=== PATIENT | male | born 1945 | race Caucasian/White ===

== ENCOUNTER → 2019-01-25 11:06 | Outpatient (CLI) | payer MEDICARE, BC ==
[2010-10-01 08:56] VITALS: BMI 27.4
== END | disposition home or self-care (01) ==
LOC: D.MRI 11:06
PROVIDERS: ATTEND Family Medicine
DX: R51 Headache (principal)

== ENCOUNTER 2019-09-07 11:03 | Inpatient (IN) | payer MEDICARE, BC ==
[~2019-09-07] VITALS: Ht 172.7 cm; Wt 78.5 kg
[2019-09-07] MEDS ORDERED: LISINOPRIL10 MG PO (11:10)
[2019-09-07 11:37] LABS: BASOPHILS 0.1 % (0-2); EOSINOPHILS 0.6 % (0-7); HEMATOCRIT 47.3 % (42.0-54.0); HEMOGLOBIN 16.2 g/dL (13.5-17.5); IMMATURE GRANULOCYTES 1.1 % (0-5); MCH 30.8 pg (26.0-34.0); MCHC 34.2 g/dL (31.0-37.0); MCV 89.9 fL (80.0-100.0); MEAN PLATELET VOLUME 9.3 fL (7.4-10.4); MONOCYTES 8.1 % (2-11); NEUTROPHILS 73.1 % (40-80); PLATELET COUNT 216 10x3/uL (130-400); RBC 5.26 10x6/uL (4.20-6.10); RDW 12.4 % (11.5-14.5); WBC 11.7 10x3/uL (4.8-10.8)
[2019-09-07 11:45] LABS: CALCIUM 9.4 mg/dL (8.5-10.1); CREATININE - SERUM 1.2 mg/dL (0.6-1.3)
--- NOTE | 2019-09-07 11:45 | NUR ---
TECH AT BS FOR RLE US
[2019-09-07 11:48] LABS: BILIRUBIN - TOTAL 0.77 mg/dL (0.2-1.3); PROTEIN - SERUM 8.3 g/dL (6.4-8.2)
[2019-09-07 11:52] LABS: APTT 28.3 SECONDS (22.8-39.4); INR 1.06 (0.85-1.17); PROTIME 13.3 SECONDS (11.6-15.0)
--- NOTE | 2019-09-07 12:24 | NUR ---
ATTEMPTED TO CALL REPORT RN UNAVAILABLE
--- NOTE | 2019-09-07 12:26 | MORECARE ---
CASE MANAGEMENT DISCHARGE SUMMARY PATIENT: KAN MOSELEY UNIT: [id number] ADM DATE: 09/07/19 AGE: 74 : 43 SEX: M ROOM/BED: D.211 AUTHOR: GARRICK CARTAGENA PHYSICIAN: REFERRING PHYSICIAN: NII CÁRDENAS MD DATE OF SERVICE: 09/07/19 Discharge Plan Patient Name: KAN MOSELEY [facility] [facility] 1945 Planned Disposition: Anticipated Discharge Date: 09/10/19 Discharge Date: Expected LOS: 3 Initial Reviewer: [email or web address] Initial Review Date: 09/07/2019 Generated: 09/07/19 1:26 pm DCPIA - Discharge Planning Initial Assessment Updated by [email or web address]: Donya Willoughby on 09/07/19 12:25 pm * Is the patient Alert and Oriented? Yes * How many steps to enter\exit or inside your home? * PCP Dr. Santos * Pharmacy [facility] in [place] * Preadmission Environment Home with Family * ADLs Independent * Equipment Rolling Walker Wheelchair * Other Equipment Does not use equipment * List name and contact numbers for known caregivers / representatives who currently or will assist patient after discharge: Beba Moseley - - [phone] * Verbal permission to speak to the caregivers and representatives has been obtained from the patient. Yes * Community resources currently utilized None * Additional services required to return to the preadmission environment? No * Can the patient safely return to the preadmission environment? Yes * Has this patient been hospitalized within the prior 30 days at any hospital? No Patient Name: KAN MOSELEY Page [id number] at 1226 All edits/amendments must be made on the electronic document DICTATION DATE: 09/07/191225 CONTROL OPERATOR FLOW COAT: WAYLON 09/07/196 RPT#: [id number] DC DATE: STATUS: ADM IN [facility] [address] [place] [address] END OF REPORT
--- NOTE | 2019-09-07 12:32 | NUR ---
REPORT TO RAFAEL EDOUARD
--- NOTE | 2019-09-07 12:33 | NUR ---
RECIEVED REPORT FROM ATIF ON PT.
[2019-09-07 12:34] VITALS: BP 127/85
--- NOTE | 2019-09-07 12:35 | MORECARE ---
CASE MANAGEMENT DISCHARGE SUMMARY PATIENT: KAN MOSELEY UNIT: [id number] ADM DATE: 09/07/19 AGE: 74 : 44 SEX: M ROOM/BED: D.2111 AUTHOR: OSIEL,DOC PHYSICIAN: REFERRING PHYSICIAN: NII CÁRDENAS MD DATE OF SERVICE: 09/07/19 Discharge Plan Patient Name: KAN MOSELEY Facility: [facility]:[place] : 1945 Planned Disposition: Anticipated Discharge Date: 09/10/19 Discharge Date: Expected LOS: 3 Initial Reviewer: [email or web address] Initial Review Date: 09/07/2019 Generated: 09/07/19 1:35 pm DCP- Discharge Planning Updated by [email or web address]: Donya Willoughby on 09/07/19 11:[address] DC PLAN: Return home with independently. ANTICIPATED DC NEEDS: Denied dc needs. CM met with patient to complete initial dc planning assessment. CM educated patient on the CM role and verbal consent given by patient to complete assessment. CM verified patient's address, phone number, and emergency contact phone numbers. Patient lives at home with his and reports he is independent in his care at home. At discharge patient plans to return home independently and feels this is a safe discharge. CM discussed availability of home health, rehab services, and medical equipment. Patient denied known discharge needs at this time. Transportation provider at discharge will be his . CM will continue to follow and will assist as needed with dc plans/needs. Donya Willoughby RN, [facility] DCPIA - Discharge Planning Initial Assessment Updated by [email or web address]: Donya Willoughby on 09/07/19 12:25 pm * Is the patient Alert and Oriented? Yes * How many steps to enter\exit or inside your home? * PCP Dr. Santos * Pharmacy [facility] in [place] * Preadmission Environment Home with Family * ADLs Independent * Equipment Rolling Walker Wheelchair * Other Equipment Does not use equipment * List name and contact numbers for known caregivers / representatives who currently or will assist patient after discharge: Beba Moseley - - [phone] * Verbal permission to speak to the caregivers and representatives has been obtained from the patient. Yes * Community resources currently utilized None * Additional services required to return to the preadmission environment? No * Can the patient safely return to the preadmission environment? Yes * Has this patient been hospitalized within the prior 30 days at any hospital? No Last DP export: 09/07/19 11:26 Patient Name: KAN MOSELEY Page [phone] at 1235 All edits/amendments must be made on the electronic document DICTATION DATE: 09/07/19 1235 FILM PROJECTOR OPERATOR: WAYLON 09/07/19 1235 RPT#: [id number] DC DATE: STATUS: ADM IN [facility] [address] [place] [address] END OF REPORT
--- NOTE | 2019-09-07 12:40 | NUR ---
TRANSPORTED TO ROOM #2111, CONDITION STABLE
--- NOTE | 2019-09-07 12:51 | NUR ---
PT ARRIVED TO ROOM. RR EVEN AND UNLBAORED ON RA. PT HAS A L FA PIV INFUSING NS @125. AT BEDSIDE. BED LOCKED AND IN LOWEST POSITION, CALL LIGHT WITHIN REACH WILL CTM.
[2019-09-07 16:14] VITALS: BP 127/85; BMI 26.6
[2019-09-07 17:19] VITALS: BP 148/87
[2019-09-07 18:21] LABS: APPEARANCE CLEAR (CLEAR); BILIRUBIN NEGATIVE (NEGATIVE); COLOR YELLOW (YELLOW); GLUCOSE 1000 mg/dL (NEGATIVE); KETONE NEGATIVE (NEGATIVE); NITRITE NEGATIVE (NEGATIVE); PROTEIN NEGATIVE (NEGATIVE); SPECIFIC GRAVITY 1.015 (1.005-1.020); UROBILINOGEN NORMAL (NORMAL)
--- NOTE | 2019-09-07 19:31 | NUR ---
RECEVIED UP IN BED WITH EYES O[PEN AND TV ON. ALERT AND ORIETNED X4. UP AD RONI TO B/R.RIGHT LOWER EXTREMITY WARM, RED AND EDEMATOUS. IV TO RIGHT WRIST WITH NS AT 75CC/H. DENIES ANY NEEDS AT THIS TIME.
[2019-09-07 20:30] VITALS: BP 102/61
[2019-09-08 00:30] VITALS: BP 112/66
[2019-09-08 05:04] LABS: BASOPHILS 0.3 % (0-2); EOSINOPHILS 4.1 % (0-7); HEMATOCRIT 40.7 % (42.0-54.0); HEMOGLOBIN 13.5 g/dL (13.5-17.5); IMMATURE GRANULOCYTES 1.7 % (0-5); LYMPHOCYTES 29.5 % (15-50); MCH 30.1 pg (26.0-34.0); MCHC 33.2 g/dL (31.0-37.0); MCV 90.6 fL (80.0-100.0); MEAN PLATELET VOLUME 9.1 fL (7.4-10.4); MONOCYTES 8.9 % (2-11); NEUTROPHILS 55.5 % (40-80); PLATELET COUNT 200 10x3/uL (130-400); RBC 4.49 10x6/uL (4.20-6.10); RDW 12.4 % (11.5-14.5)
[2019-09-08 05:11] LABS: WBC 7.8 10x3/uL (4.8-10.8)
[2019-09-08 05:20] LABS: ALKALINE PHOSPHATASE 98 U/L (46-116); ALT (SGPT) 13 U/L (10-68); BILIRUBIN - TOTAL 0.58 mg/dL (0.2-1.3); CALCIUM 8.2 mg/dL (8.5-10.1); CARBON DIOXIDE 25.8 mmol/L (21.0-32.0); CHLORIDE - SERUM 104 mmol/L (98-107); POTASSIUM - SERUM 4.3 mmol/L (3.5-5.1); PROTEIN - SERUM 6.7 g/dL (6.4-8.2); SODIUM 136 mmol/L (136-145); eGFR NON AFRICAN AMERICAN 77 mL/min (90-120)
[2019-09-08 05:22] LABS: CALC OSMOLALITY 280 mosm/kg (275-300); GLUCOSE 238 mg/dL (74-106); UREA NITROGEN 16 mg/dL (7-18)
[2019-09-08 06:42] VITALS: BP 123/75
[2019-09-08 08:06] VITALS: BP 132/78
--- NOTE | 2019-09-08 09:47 | NUR ---
LISINOPRIL GIVEN ORDRED, PT IN BED, A/O X4, RESP EVEN AND NONLABORED ON RA. LT FA IV INFUSING NS AT 75CC/HR. PT DENIES ANY NEEDS AT THIS TIME. CALL LIGHT IN REACH, NAD NOTED, WILL CONTINUE TO MONITOR.
[2019-09-08 11:33] VITALS: BP 146/74
[2019-09-08 15:31] VITALS: BP 147/82
--- NOTE | 2019-09-08 18:18 | NUR ---
PT RESTING COMFORTABLY IN BED, PROVIDED PT WITH CUP OF ICE WATER. PT DENIES ANY OTHER NEEDS AT THIS TIME. CALL LIGHT IN REACH, NAD NOTED.
--- NOTE | 2019-09-08 19:30 | NUR ---
REPORT RECIEVED AND ROUNDING COMPLETE. PATIENT LAYING IN BED EYES CLOSED AND BEATHING EVEN AND SHALLOW. PATIENT HAS A LEFT WRIST PIV THAT IS PATENT AND RUNNING FLUIDS. PIV IS SHOWING NO S/SX OF INFILTRATION AT THIS TIME. PATIENT IN LAYING IN LOW FOWLERS, PATIENT SHOWS NO S/SX OF DISTRESS AT THIS TIME. CALL LIGHT WITHIN REACH AND BED IN LOWEST LOCKED POSITION.
[2019-09-08 20:30] VITALS: BP 135/71
[2019-09-09 00:26] VITALS: BP 142/75
[2019-09-09 10:28] VITALS: BP 146/84
[2019-09-09 14:02] VITALS: BP 106/68
[2019-09-09 17:10] VITALS: BP 113/76
--- NOTE | 2019-09-09 19:22 | NUR ---
AWAKE ANS ALERT DENIES NEEDS AT THIS TIME BED IS LOW AND LOCKED AND CALL LIGHT IS IN REACH
[2019-09-09 20:29] VITALS: BP 117/61
[2019-09-10 00:30] VITALS: BP 132/73
--- NOTE | 2019-09-10 01:24 | NUR ---
I have reviewed this patient and I concur with the Shift Assessment completed by the Licensed Practical Nurse today this shift.
[2019-09-10 04:03] VITALS: BP 136/93
[2019-09-10 06:01] LABS: BASOPHILS 0.1 % (0-2); HEMATOCRIT 40.9 % (42.0-54.0); HEMOGLOBIN 13.7 g/dL (13.5-17.5); IMMATURE GRANULOCYTES 1.3 % (0-5); LYMPHOCYTES 32.4 % (15-50); MCHC 33.5 g/dL (31.0-37.0); MCV 89.5 fL (80.0-100.0); MEAN PLATELET VOLUME 9.3 fL (7.4-10.4); MONOCYTES 8.8 % (2-11); NEUTROPHILS 53.4 % (40-80); PLATELET COUNT 226 10x3/uL (130-400); RBC 4.57 10x6/uL (4.20-6.10); RDW 12.4 % (11.5-14.5); WBC 7.2 10x3/uL (4.8-10.8)
[2019-09-10 06:34] LABS: CALCIUM 8.4 mg/dL (8.5-10.1); CARBON DIOXIDE 24.2 mmol/L (21.0-32.0); CHLORIDE - SERUM 107 mmol/L (98-107); CREATININE - SERUM 0.9 mg/dL (0.6-1.3); POTASSIUM - SERUM 4.3 mmol/L (3.5-5.1); SODIUM 141 mmol/L (136-145); eGFR NON AFRICAN AMERICAN 87 mL/min (90-120)
[2019-09-10 06:38] LABS: CALC OSMOLALITY 283 mosm/kg (275-300); GLUCOSE 174 mg/dL (74-106); UREA NITROGEN 11 mg/dL (7-18)
--- NOTE | 2019-09-10 07:56 | NUR ---
PATIENT IS ALERT AND AWAKE. DENIES ANY NEEDS AT THIS TIME.
--- NOTE | 2019-09-10 07:57 | NUR ---
PATIENT IS SITTING UP IN BED. HE HAS BEEN NPO SINCE MIDNIGHT. HE WANTS TO EAT AND DRINK. HIS WAS CALLING TO FIND OUT WHAT TIME HE IS HAVING HIS PROCEDURE, HOWEVER THERE ARE NO ORDERS YET. PATIENT HAS NOT REPORTED ANY PAIN. DENIES ANY NEEDS AT THIS TIME.
[2019-09-10 08:40] VITALS: BP 126/80
--- OUTSIDE RECORDS SUMMARY | 2019-09-10 10:53 | XMS Report ---
Demographics + + + | Address | [address] | | | [place] [address] | + + + | Home Phone | [phone] | + + + | Preferred Language | Unknown | + + + | Marital Status | | + + + | Yarsani Affiliation | Shinto: Mormon | + + + | Race | White | + + + | Ethnic Group | Not or | + + + Author + + + | Author | [facility] | + + + | Organization | [facility] | + + + | Address | Unknown | + + + | Phone | Unavailable | + + + Support + + + + + | Name | Relationship | Address | Phone | + + + + + | Jeff COATS Of [facility] | [address] | [phone] | | [place] | | [place] | | | | | [address] | | + + + + + Care Team Providers + + + + | Care Makeup Artistry Instructor Name | Role | Phone | + + + + Unavailable | Unavailable | + + + + Unavailable | Unavailable | + + + + Unavailable | Unavailable | + + + + Unavailable | Unavailable | + + + + Unavailable | Unavailable | + + + + Unavailable | Unavailable | + + + + Unavailable | Unavailable | + + + + Unavailable | Unavailable | + + + + Unavailable | Unavailable | + + + + Unavailable | Unavailable | + + + + Unavailable | Unavailable | + + + + Unavailable | Unavailable | + + + + Unavailable | Unavailable | + + + + Unavailable | Unavailable | + + + + Unavailable | Unavailable | + + + + Unavailable | Unavailable | + + + + Unavailable | Unavailable | + + + + Unavailable | Unavailable | + + + + Unavailable | Unavailable | + + + + Unavailable | Unavailable | + + + + Unavailable | Unavailable | + + + + Unavailable | Unavailable | + + + + Unavailable | Unavailable | + + + + Unavailable | Unavailable | + + + + Unavailable | Unavailable | + + + + Unavailable | Unavailable | + + + + Unavailable | Unavailable | + + + + Unavailable | Unavailable | + + + + Unavailable | Unavailable | + + + + Unavailable | Unavailable | + + + + Unavailable | Unavailable | + + + + Unavailable | Unavailable | + + + + Unavailable | Unavailable | + + + + Unavailable | Unavailable | + + + + Unavailable | Unavailable | + + + + Unavailable | Unavailable | + + + + Unavailable | Unavailable | + + + + Unavailable | Unavailable | + + + + Unavailable | Unavailable | + + + + Unavailable | Unavailable | + + + + Unavailable | Unavailable | + + + + Unavailable | Unavailable | + + + + Unavailable | Unavailable | + + + + Unavailable | Unavailable | + + + + Unavailable | Unavailable | + + + + Unavailable | Unavailable | + + + + Unavailable | Unavailable | + + + + Unavailable | Unavailable | + + + + Unavailable | Unavailable | + + + + Unavailable | Unavailable | + + + + Unavailable | Unavailable | + + + + Unavailable | Unavailable | + + + + Unavailable | Unavailable | + + + + Unavailable | Unavailable | + + + + Unavailable | Unavailable | + + + + Unavailable | Unavailable | + + + + Unavailable | Unavailable | + + + + Unavailable | Unavailable | + + + + Unavailable | Unavailable | + + + + Unavailable | Unavailable | + + + + Unavailable | Unavailable | + + + + Unavailable | Unavailable | + + + + Unavailable | Unavailable | + + + + Unavailable | Unavailable | + + + + Unavailable | Unavailable | + + + + Unavailable | Unavailable | + + + + Unavailable | Unavailable | + + + + Unavailable | Unavailable | + + + + Unavailable | Unavailable | + + + + Unavailable | Unavailable | + + + + Unavailable | Unavailable | + + + + Unavailable | Unavailable | + + + + Unavailable | Unavailable | + + + + Unavailable | Unavailable | + + + + Unavailable | Unavailable | + + + + Unavailable | Unavailable | + + + + Unavailable | Unavailable | + + + + Unavailable | Unavailable | + + + + Unavailable | Unavailable | + + + + Unavailable | Unavailable | + + + + Unavailable | Unavailable | + + + + Unavailable | Unavailable | + + + + Unavailable | Unavailable | + + + + Unavailable | Unavailable | + + + + Unavailable | Unavailable | + + + + Unavailable | Unavailable | + + + + Unavailable | Unavailable | + + + + Unavailable | Unavailable | + + + + Unavailable | Unavailable | + + + + Unavailable | Unavailable | + + + + Unavailable | Unavailable | + + + + Unavailable | Unavailable | + + + + Unavailable | Unavailable | + + + + Unavailable | Unavailable | + + + + Unavailable | Unavailable | + + + + Unavailable | Unavailable | + + + + Unavailable | Unavailable | + + + + Unavailable | Unavailable | + + + + Unavailable | Unavailable | + + + + Unavailable | Unavailable | + + + + Unavailable | Unavailable | + + + + Unavailable | Unavailable | + + + + Unavailable | Unavailable | + + + + Unavailable | Unavailable | + + + + | Danielle Hernandez | PP | Unavailable | + + + + Allergies and Adverse Reactions +---------+ + + +--------+ + | Type | Descripti | Substance | Reaction | Status | Data | | | on | | | | Source(s) | +---------+ + + +--------+ + | Drug | No Known | No Known | | | National | | allergy | Drug | Drug | | | [facility] | | | Allergy | Allergy | | | Medical | | | | | | | Center | | | | | | | ([facility] | | | | | | | Hospital | +---------+ + + +--------+ + Encounters + + + + + + + | Encounter | Providers | Location | Date | Indicatio | Data | | | | | | ns | Source(s) | + + + + + + + | OUTPATIEN | Admitter: | Dick | | | [facility] | | T | Danielle | Family | 9 | | r | | | Tom | Medicine | 10:42:00 | | Physician | | | | | AM COMMERCIAL CONSTRUCTION ESTIMATOR | | s Hot | | | | | | | [place] | | | | | | | Lexa | + + + + + + + | OUTPATIEN | Admitter: | [email or web address] | | | National | | T | NETO | paedic | 9 | | Park | | | IMER | Center of | 10:11:00 | | Medical | | | | Hot | AM COMMERCIAL CONSTRUCTION ESTIMATOR | | Center | | | | [place] | | | Clinics | + + + + + + + | OUTPATIEN | Admitter: | [email or web address] | | | National | | T | NETO | winifredic | 9 | | Park | | | POPPYDER | Center of | 10:10:00 | | Medical | | | | Hot | AM COMMERCIAL CONSTRUCTION ESTIMATOR | | Center | | | | [place] | | | Clinics | + + + + + + + | OUTPATIEN | Admitter: | [place] | | | [facility] | | T | Danielle | Family | 9 | | r | | | Tom | Medicine | 11:35:00 | | Physician | | | | | AM COMMERCIAL CONSTRUCTION ESTIMATOR | | s Hot | | | | | | | [place] | | | | | | | Silvia | + + + + + + + | OUTPATIEN | Admitter: | [facility] | | | [facility] | | T | Danielle | Family | 9 | | r | | | Tom | Medicine | 35: | | Physician | | | | | AM COMMERCIAL CONSTRUCTION ESTIMATOR | | s Hot | | | | | | | [place] | | | | | | | Lexa | + + + + + + + | OUTPATIEN | Admitter: | Dick | | | [facility] | | T | Danielle | Family | 9 | | r | | | Tom | Medicine | 34: | | Physician | | | | | AM COMMERCIAL CONSTRUCTION ESTIMATOR | | s Hot | | | | | | | [place] | | | | | | | Lexa | + + + + + + + | OUTPATIEN | Admitter: | [place] | | | [facility] | | T | Danielle | Family | 9 | | r | | | Tom | Medicine | 11:06:00 | | Physician | | | | | AM COMMERCIAL CONSTRUCTION ESTIMATOR | | s Hot | | | | | | | [place] | | | | | | | Silvia | + + + + + + + | Inpatient | Attender: | | | | National | | | NII | | 9 | | Park | | | DWORKINAt | | 11:03:00 | | Medical | | | tender: | | AM COMMERCIAL CONSTRUCTION ESTIMATOR | | Center | | | EVA | | | | ([facility]) | | | RACHAEL | | | | Hospital | | | MDAluisitte | | | | | | | r: NII | | | | | | | FAROOQORKLouis | | | | | | | nsultant: | | | | | | | Danielle | | | | | | | Tom | | | | | + + + + + + + | OUTPATIEN | Admitter: | Dick | | | [facility] | | T | Danielle | Family | 9 | | r | | | Tom | Medicine | :33: | | Physician | | | | | AM COMMERCIAL CONSTRUCTION ESTIMATOR | | s Hot | | | | | | | [place] | | | | | | | Silvia | + + + + + + + | Outpatien | Attender: | Dick | | | [facility] | | t | | Family | 9 | | r | | | [facility] | Medicine | 09:33:00 | | Physician | | | R | | AM COMMERCIAL CONSTRUCTION ESTIMATOR | | s Hot | | | WALK-INAd | | | | [place] | | | mitter: | | | | Sil[place] | | | Danielle | | | | | | | Tom | | | | | + + + + + + + + + | PatientName : KAN COATS (74yo, M) ID# [id number]. Date/Time : | | 09/07/2019 09:30AMDOB : 1945Service Dept. [facility] | | ClinicProvider : BRAXTON DANIELS CNPInsuranceMed Primary: [place] | | (MEDICARE)Insurance # : [id number] Secondary: [place] - | | FEPInsurance # : [id number]/Group # : [id number]: | | [facility] - Member is eligible. detailsChief ComplaintNone | | recorded.Patient's Care TeamPrimary Care Provider: KEVIN HENRY, | | CNSPatient's Pharmacies[facility] [place] [facility] ([facility] [address] | | [place] [address], , Fax [phone]) | | [phone] [place] ([facility]): [address] [place] [address], | | [place] [address], , VitalsHt:5 ft 8 | | in (172.72 cm) 09/07/2019 09:50 amWt:175 lbs 8 oz (79.61 kg) | | 09/07/2019 09:50 amBMI:26.7 09/07/2019 09:50 amBP:158/109 sitting L arm | | 09/07/2019 09:50 liB0Hqe:96% Room Air at Rest 09/07/2019 09:51 | | amPulse:100 bpm 09/07/2019 09:51 amRR:18 09/07/2019 09:51 amT:97.7 F? | | oral (36.5 C) 09/07/2019 09:51 amAllergiesReviewed | | AllergiesNKDAMedicationsReviewed MedicationsName: diazePAM 5 mg tablet | | Take 1 tablet(s) every 4-6 hours by oral route as needed.Date: 01/25/19 | | filledSource: CaremarkName: lisinopriL 10 mg tablet TAKE 1 TABLET BY | | MOUTH DAILYDate: 06/27/19 renewedSource: KEVIN HENRY, CNSName: | | naproxen 500 mg tablet Take 1 tablet(s) twice a day by oral route for | | 10 days.Date: 02/23/19 prescribedSource: DAISY MOE, | | CNPVaccinesVaccines not reviewed (last reviewed 02/23/2019)Vaccine | | Type: influenza, injectable, quadrivalentDate: 06/20/19Amt.: 0.5 | | mLRoute: IntramuscularSite: Deltoid, LeftNDC: [id number] #: | | [id number].: Sanofi PasteurExp. Date: 03/18/20Date on VIS: 05/03/19VIS | | Given: 06/20/19Vaccinator: Ewa White RT(R)(CT)-MAVaccine Type: | | influenza, injectable, quadrivalentDate: 06/15/17mt.:Route:Site: | | Deltoid, RightNDC:Lot #: [id number].:Exp. Date: 02/15/18Date on VIS:VIS | | Given: 06/15/17Vaccinator:Vaccine Type: influenza, seasonal, | | injectableDate: 07/20/16Amt.:Route:Site:NDC:Lot #:[id number].:Exp. Date:Date | | on VIS:VIS Given:Video Player Mechanic:Vaccine Type: influenza, injectable, | | quadrivalentDate: 07/07/15Amt.:Route:Site: Deltoid, LeftNDC:Lot #: | | [id number].:Exp. Date: 03/18/16Date on VIS:VIS Given: | | 07/07/15Vaccinator:Vaccine Type: influenza, seasonal, injectableDate: | | 06/27/14Amt.:Route:Site: Deltoid, LeftNDC:Lot #: [id number].:Exp. Date: | | 03/18/15Date on VIS:VIS Given: 06/27/14Vaccinator:Vaccine Type: | | influenza, seasonal, injectableDate: 06/14/13Amt.:Route:Site: Deltoid, | | LeftNDC:Lot #: [id number].:Exp. Date: 11/28/13Date on VIS:VIS Given: | | 06/14/13Vaccinator:Vaccine Type: pneumococcal polysaccharide [id number]: | | 11/06/15Amt.:Route:Site: Deltoid, RightNDC:Lot #: [id number].:Exp. | | Date: 12/13/16Date on VIS:VIS Given: 11/06/15Vaccinator:Vaccine Type: | | pneumococcal conjugate PCV 13Date: 04/12/13Amt.:Route:Site: Deltoid, | | LeftNDC:Lot #: [id number].: Pfizer, IncExp. 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 in a | | clinical environment - Onset: 11/01/2018Family HistoryFamily History | | not reviewed (last reviewed 02/23/2019)Social HistoryReviewed Social | | HistoryFamily Medicine and Medical Wellness Visit/IPPEAble to Care for | | Self: YLive alone or with others?: with othersAre you currently | | employed?: YNumber of children: 2Alcohol intake: NoneCaffeine intake: | | ModerateIllicit drugs: noneDiet: RegularExercise level: NoneHard of | | hearing or deaf in one or both ears?: NLegally blind in one or both | | eyes?: NTobacco Smoking Status: Former smokerChewing tobacco: | | noneNon-smokerPassive smoke exposure?: NSeat belts used routinely: YIs | | the patient ambulatory?: Yes: walks without restrictionsSmokeless | | Tobacco Status: Never used smokeless tobaccoE-cigarette/Vape Status: | | Never used electronic cigarettesMost Recent Tobacco Use Screening: | | 02/23/2019Single or multi-level home/work?: single level homeMarital | | status: MarriedSurgical HistorySurgical History not reviewed (last | | reviewed 02/23/2019)* Shoulder joint surgery - leftPast Medical | | HistoryPast Medical History not reviewed (last reviewed | | 02/23/2019)HPIExtremity Pain/InjuryReported by patient.Location: red, | | swollen right leg from groin to foot. States that groin is tender and | | sore,ROSROS as noted in the HPIPhysical ExamPatient is a 74-year-old | | male.Constitutional: General Appearance: well-developed. Level of | | Distress: NAD.Psychiatric: Mental Status: active and alert.Head: Head: | | normocephalic.Eyes: Pupils: PERRLA. Corneas: grossly intact. | | Fundoscopic: normal optic discs. EOM: EOMI. Sclerae: non-icteric.ENMT: | | Ears: no lesions on external ear, EACs clear, and TMs clear. Nose: no | | lesions on external nose and nasal passages clear. Oropharynx: moist | | mucous membranes and no erythema.Neck: Neck: supple. Lymph Nodes: no | | cervical LAD.Lungs: Respiratory effort: no dyspnea. Auscultation: | | breath sounds normal.Cardiovascular: Heart Auscultation: RRR. Neck | | vessels: no carotid bruits.Musculoskeletal:: Motor Strength and Tone: | | normal. Joints, Bones, and Muscles: no malalignment or bony | | abnormalities and tenderness and limited ROM; right leg swelling, no | | erythema. Extremities: no cyanosis or edema.Neurologic: Gait and | | Station: normal gait; no focal deficits.Skin: Inspection and palpation: | | no rash.Assessment / PlanAssessment:Condition Status: | | stableGoals:ImprovingFollow-up:PRN1. Swelling of lower leg -Venous | | doppler order today, extensive DVT thrombosis, patient sent to [facility] and | | admitted.R22.41: Localized swelling, mass and lump, right lower limb* | | US, DUPLEX, VENOUS, EXTREMITY, UNILATERALCPT: [id number]. Essential | | [id number]: Essential (primary) hypertensionReturn to Office* to | | see MAGNO PINA for Medicare Wellness at [facility] | | Medicine on or around 11/02/2019Encounter Sign-OffEncounter signed-off | | by MARTÍN GARCIA DO, 09/09/2019. | + + + + + + +---+ + | OUTPATIEN | Admitter: | [place] | | | [facility] | | T | Danielle Sin | 9 | | r | | | Tom | Medicine | 11:34:00 | | Physician | | | | | AM CDT | | s Hot | | | | | | | [place] | | | | | | | Lexa | + + + + +---+ + | OUTPATIEN | Admitter: | [place] | | | [facility] | | T | Danielle | Family | 9 | | r | | | Tom | Medicine | 11:34:00 | | Physician | | | | | AM CDT | | s Hot | | | | | | | [place] | | | | | | | Lexa | + + + + +---+ + | OUTPATIEN | Admitter: | [place] | | | [facility] | | T | Danielle | Family | 9 | | r | | | Tom | Medicine | 09:39:00 | | Physician | | | | | AM CDT | | s Hot | | | | | | | [place] | | | | | | | Lexa | + + + + +---+ + | Outpatien | Attender: | [place] | | | [facility] | | t | [place] | Family | 9 | | r | | | | Medicine | 08:39:00 | | Physician | | | LABAdmitt | | AM CDT | | s Hot | | | er: | | | | [place] | | | Danielle | | | | [place] | | | Tom | | | | | + + + + +---+ + + + | PatientName : KAN COATS (73yo, M) ID# [id number]. Date/Time : | | 06/20/2019 08:45AMDOB : 1945[facility] Dept. : [facility] | | MedicineProvider : DAISY MOE CNPInsuranceMed Primary: [place] | | (MEDICARE)Insurance # : [id number] Secondary: [place] - | | FEPInsurance # : [id number]/Group # : [id number]: | | [facility] - Member is eligible. detailsChief Complaintinfluenza | | vaccinationPatient's Care TeamPrimary Care Provider: KEVIN HENRY, | | CNSPatient's Pharmacies[facility] ([facility]): [address] | | [place] [address], , Fax [phone]) | | [phone] ([facility]): [address] [place] [address], | | [place] [address], , VitalsNone | | recorded.AllergiesAllergies not reviewed (last reviewed | | 02/23/2019)NKDAMedicationsMedications not reviewed (last reviewed | | 02/23/2019)Name: diazePAM 5 mg tablet Take 1 tablet(s) every 4-6 hours | | by oral route as needed.Date: 01/25/19 filledSource: CaremarkName: | | lisinopril 10 mg tablet TAKE 1 TABLET BY MOUTH DAILYDate: 01/02/19 | | filledSource: CaremarkName: naproxen 500 mg tablet Take 1 tablet(s) | | twice a day by oral route for 10 days.Date: 02/23/19 | | prescribedSource: DAISY MOE CNPVaccinesVaccines not reviewed (last | | reviewed 02/23/2019)Vaccine Type: influenza, injectable, | | quadrivalentDate: 06/20/19Amt.: 0.5 mLRoute: IntramuscularSite: | | Deltoid, LeftNDC: [id number] #: [id number].: Sanofi PasteurExp. | | Date: 03/18/20Date on VIS: 05/03/19VIS Given: 06/20/19Vaccinator: | | Ewa ConnerVaccine Type: influenza, injectable, quadrivalentDate: | | 06/15/17mt.:Route:Site: Deltoid, RightNDC:Lot #: [id number].:Exp. Date: | | 02/15/18Date on VIS:VIS Given: 06/15/17Vaccinator:Vaccine Type: | | influenza, seasonal, injectableDate: 07/20/16Amt.:Route:Site:NDC:Lot | | #:Mfr.:Exp. Date:Date on VIS:VIS Given:Video Player Mechanic:Vaccine Type: | | influenza, injectable, quadrivalentDate: 07/07/15Amt.:Route:Site: | | Deltoid, LeftNDC:Lot #: [id number].:Exp. Date: 03/18/16Date on VIS:VIS | | Given: 07/07/15Vaccinator:Vaccine Type: influenza, seasonal, | | injectableDate: 06/27/14Amt.:Route:Site: Deltoid, LeftNDC:Lot #: | | [id number].:Exp. Date: 03/18/15Date on VIS:VIS Given: | | 06/27/14Vaccinator:Vaccine Type: influenza, seasonal, injectableDate: | | 06/14/13Amt.:Route:Site: Deltoid, LeftNDC:Lot #: [id number].:Exp. Date: | | 11/28/13Date on VIS:VIS Given: 06/14/13Vaccinator:Vaccine Type: | | pneumococcal polysaccharide [id number]: 11/06/15Amt.:Route:Site: | | Deltoid, RightNDC:Lot #: [id number].:Exp. Date: 12/13/16Date on VIS:VIS | | Given: 11/06/15Vaccinator:Vaccine Type: pneumococcal conjugate PCV | | 13Date: 04/12/13Amt.:Route:Site: Deltoid, LeftNDC:Lot #: [id number].: | | Pfizer, IncExp. 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 | | environment - Onset: 11/01/2018Family HistoryFamily History not | | reviewed (last reviewed 02/23/2019)Social HistorySocial History not | | reviewed (last reviewed 02/23/2019)Family Medicine and Medical Wellness | | Visit/IPPEAble to Care for Self: YLive alone or with others?: with | | othersAre you currently employed?: YNumber of children: 2Alcohol | | intake: NoneCaffeine intake: ModerateIllicit drugs: noneDiet: | | RegularExercise level: NoneHard of hearing or deaf in one or both | | ears?: NLegally blind in one or both eyes?: NTobacco Smoking Status: | | Former smokerChewing tobacco: nonePassive smoke exposure?: NSeat belts | | used routinely: YIs the patient ambulatory?: Yes: walks without | | restrictionsMost Recent Tobacco Use Screenin02/23/2019Single or | | multi-level home/work?: single level homeMarital status: | | MarriedSurgical HistorySurgical History not reviewed (last reviewed | | 02/23/2019)* Shoulder joint surgery - leftPast Medical HistoryPast | | Medical History not reviewed (last reviewed 02/23/2019)Assessment / | | Plan1. Influenza [id number]: Encounter for immunization* FLUZONE | | QUAD 60 MCG (15 MCG X 4)/0.5 ML INTRAMUSCULAR SUSP. -INJECT | | 0.5 MILLILITER (60 MCG) BY INTRAMUSCULAR ROUTE ONCE influenza, | | injectable, quadrivalent Site: Deltoid, Left Qty: 0.5 mL | | Administered 06/20/2019 Perform Date: 06/20/2019Return to | | OfficeNone recorded.Encounter Sign-OffEncounter signed-off by DAISY | | RADHA MOE, 06/22/2019. | + + + + + + +---+ + | OUTPATIEN | Admitter: | [place] | | | [facility] | | T | Danielle | Family | 9 | | r | | | Tom | Medicine | 03:26:00 | | Physician | | | | | PM CDT | | s Hot | | | | | | | [place] | | | | | | | Lexa | + + + + +---+ + | OUTPATIEN | Attender: | [facility] | | | [facility] | | T | DR | Family | 9 | | r | | | DAISY | Medicine | 11:49:00 | | Physician | | | MOE JAMMER OPERATOR | | AM CDT | | s Hot | | | | | | | [place] | | | | | | | Lexa | + + + + +---+ + | OUTPATIEN | Attender: | [place] | | | [facility] | | T | DR | Family | 9 | | r | | | DAISY | Medicine | 11:29:00 | | Physician | | | MOE JAMMER OPERATOR | | PM CDT | | s Hot | | | | | | | [place] | | | | | | | Silvia | + + + + +---+ + | OUTPATIEN | Admitter: | [place] | | | [facility] | | T | Danielle | Family | 9 | | r | | | Tom | Medicine | 11:58:00 | | Physician | | | | | AM CDT | | s Hot | | | | | | | [place] | | | | | | | Silvia | + + + + +---+ + | OUTPATIEN | Admitter: | [place] | | | [facility] | | T | Danielle | Family | 9 | | r | | | Tom | Medicine | 11:58:00 | | Physician | | | | | AM CDT | | s Hot | | | | | | | [place] | | | | | | | Silvia | + + + + +---+ + | OUTPATIEN | Admitter: | [place] | | | [facility] | | T | Danielle | Family | 9 | | r | | | Tom | Medicine | 10:59:00 | | Physician | | | | | AM CDT | | s Hot | | | | | | | [place] | | | | | | | Lexa | + + + + +---+ + | OUTPATIEN | Admitter: | [place] | | | [facility] | | T | Danielle | Family | 9 | | r | | | Tom | Medicine | 10:58:00 | | Physician | | | | | AM CDT | | s Hot | | | | | | | [place] | | | | | | | Silvia | + + + + +---+ + | Outpatien | Attender: | [place] | | | [facility] | | t | | Family | 9 | | r | | | DAISY | Medicine | 09:58:00 | | Physician | | | PAYAL | | AM CDT - | | s Hot | | | NPAdmitte | | | | [place] | | | r: | | 9 | | [place] | | | Danielle | | 10:58:00 | | | | | Tom | | AM CDT | | | + + + + +---+ + + + | PatientName : KAN COATS (73yo, M) ID# [id number]. Date/Time : | | 02/23/2019 10:30AMDOB : 1945[place] Dept. : [facility] | | MedicineProvider : DAISY MOE CNPInsuranceMed Primary: [place] | | (MEDICARE)Insurance # : [id number] Secondary: [place] - | | FEPInsurance # : [id number]/Group # : [id number]: | | [facility] - Member is eligible. detailsChief Complaintextremity | | painPatient's Care TeamPrimary Care Provider: KEVIN HENRY, | | CNSPatient's Pharmacies[facility] ([facility] [address] | | [place] [address], , Fax [phone]) | | [phone] ([facility]): [address] [place] [address], | | [place] [address], , VitalsHt:5 ft 8 | | in (172.72 cm) 02/23/2019 10:01 amWt:175 lbs 2 oz (79.44 kg) | | 02/23/2019 10:04 amBMI:26.6 02/23/2019 10:04 amBP:160/92 sitting R arm | | 02/23/2019 10:05 egB6Kja:97% Room Air at Rest 02/23/2019 10:04 amPain | | Scale:7 02/23/2019 10:04 amPulse:78 bpm 02/23/2019 10:04 amRR:18 | | 02/23/2019 10:04 amAllergiesReviewed AllergiesNKDAMedicationsReviewed | | MedicationsName: diazePAM 5 mg tablet Take 1 tablet(s) every 4-6 hours | | by oral route as needed.Date: 01/25/19 filledSource: CaremarkName: | | lisinopril 10 mg tablet TAKE 1 TABLET BY MOUTH DAILYDate: 01/02/19 | | filledSource: CaremarkName: naproxen 500 mg tablet Take 1 tablet(s) | | twice a day by oral route for 10 days.Date: 02/23/19 | | prescribedSource: DAISY MOE CNPVaccinesRevieweberenice VaccinesVaccine | | Type: influenza, injectable, quadrivalentDate: 06/15/17mt.:Route:Site: | | Deltoid, RightNDC:Lot #: [id number].:Exp. Date: 02/15/18Date on VIS:VIS | | Given: 06/15/17Vaccinator:Vaccine Type: influenza, seasonal, | | injectableDate: 07/20/16Amt.:Route:Site:NDC:Lot #:[id number].:Exp. Date:Date | | on VIS:VIS Given:Video Player Mechanic:Vaccine Type: influenza, injectable, | | quadrivalentDate: 07/07/15Amt.:Route:Site: Deltoid, LeftNDC:Lot #: | | [id number].:Exp. Date: 03/18/16Date on VIS:VIS Given: | | 07/07/15Vaccinator:Vaccine Type: influenza, seasonal, injectableDate: | | 06/27/14Amt.:Route:Site: Deltoid, LeftNDC:Lot #: [id number].:Exp. Date: | | 03/18/15Date on VIS:VIS Given: 06/27/14Vaccinator:Vaccine Type: | | influenza, seasonal, injectableDate: 06/14/13Amt.:Route:Site: Deltoid, | | LeftNDC:Lot #: [id number].:Exp. Date: 11/28/13Date on VIS:VIS Given: | | 06/14/13Vaccinator:Vaccine Type: pneumococcal polysaccharide [id number]: | | 11/06/15Amt.:Route:Site: Deltoid, RightNDC:Lot #: [id number].:Exp. | | Date: 12/13/16Date on VIS:VIS Given: 11/06/15Vaccinator:Vaccine Type: | | pneumococcal conjugate PCV 13Date: 04/12/13Amt.:Route:Site: Deltoid, | | LeftNDC:Lot #: [id number].: SportSetter, IncExp. 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 in a | | clinical environment - Onset: 11/01/2018Family HistoryReviewed Family | | HistorySocial HistoryReviewed Social HistoryFamily Medicine and Medical | | Wellness Visit/IPPEAble to Care for Self: YLive alone or with others?: | | with othersAre you currently employed?: YNumber of children: 2Alcohol | | intake: NoneCaffeine intake: ModerateIllicit drugs: noneDiet: | | RegularExercise level: NoneHard of hearing or deaf in one or both | | ears?: NLegally blind in one or both eyes?: NSmoking Status: Former | | smokerChewing tobacco: nonePassive smoke exposure?: NSeat belts used | | routinely: YIs the patient ambulatory?: Yes: walks without | | restrictionsSingle or multi-level home/work?: single level homeMarital | | status: MarriedSurgical HistoryReviewed Surgical History* Shoulder | | joint surgery - leftPast Medical HistoryReviewed Past Medical | | HistoryHPIExtremity Pain/InjuryReported by patient.Location: right | | ankle; localized swellingQuality: sharpSeverity: pain level without | | meds 7/10; worseningDuration: present for <1 monthTiming: | | intermittentContext: unknownhad dizziness about a month ago and fell a | | couple times, but does not remember injuring his ankleAlleviating | | Factors: restAggravating Factors: movementAssociated Symptoms: no | | fever; no weak limbs; no tingling; no numbness; no incontinenceNotes:Pt | | here with ankle/foot pain; was in clinic about a month ago with | | dizziness and reports falling a couple times during then, but does not | | remember injuring his ankleThe pain started in his L valenzuela about 1.5 | | week ago with some swelling and pain moved down to ankle and foot about | | a week agopain alleviates when he is resting his ankle and worsens | | with movementROSROS as noted in the HPIPhysical ExamPatient is a | | 73-year-old male.Constitutional: General Appearance: well-developed. | | Level of Distress: NAD.Psychiatric: Mental Status: active and | | alert.Head: Head: normocephalic.Eyes: Pupils: PERRLA. Corneas: grossly | | intact. Fundoscopic: normal optic discs. EOM: EOMI. Sclerae: | | non-icteric.ENMT: Ears: no lesions on external ear, EACs clear, and TMs | | clear. Nose: no lesions on external nose and nasal passages clear. | | Oropharynx: moist mucous membranes and no erythema.Neck: Neck: supple. | | Lymph Nodes: no cervical LAD.Lungs: Respiratory effort: no dyspnea. | | Auscultation: breath sounds normal.Cardiovascular: Heart Auscultation: | | RRR. Neck vessels: no carotid bruits.Musculoskeletal:: Motor Strength | | and Tone: normal. Joints, Bones, and Muscles: no malalignment or bony | | abnormalities and tenderness and limited ROM; right foot. Extremities: | | no cyanosis or edema.Neurologic: Gait and Station: normal gait; no | | focal deficits.Skin: Inspection and palpation: no rash.Assessment / | | Plan1. Pain in lower limb - LoeyvQ38.604: Pain in right leg* LEG PAIN: | | CARE INSTRUCTIONS2. Pain in right footM79.671: Pain in right foot* URIC | | ACID3. Pain of right ankle joint -no obvious fx.tx with NSAIDS | | .M25.571: Pain in right ankle and joints of right foot* XR, ANKLE* | | ANKLE STIRRUP BRACE -Use as directed. Dispense Qty: 1 Unit* naproxen | | 500 mg tablet -Take 1 tablet(s) twice a day by oral route for 10 days. | | Qty: 20 tablet(s) Refills: 0 Pharmacy: [facility] [place] [id number]. | | Body mass index 25-29 - amcvucorlpB28.26: Body mass index (BMI) | | 26.0-26.9, adultXR, ANKLENo fracture .GoalsPatient InstructionsHe is | | instructed to take naproxen with food. Wear air cast x 2weeks, if pain | | / redness still present x 2weeks please call us back may need further | | imaging.Return to Office* DANIELLE HERNANDEZ, DO for FOLLOW UP 30 at | | [facility] on 05/07/2019 at 09:15 AM* DANIELLE HERNANDEZ DO | | for Established Patient 15 at [facility] on 05/07/2019 at | | 10:45 AMEncounter Sign-OffEncounter signed-off by DAISY MOE CNP, | | 03/01/2019. | + + + + + + +---+ + | OUTPATIEN | Admitter: | [place] | | | [facility] | | T | Danielle | Family | 9 | | r | | | [facility] | [facility] | 05:02:00 | | Physician | | | | | PM CDT | | s Hot | | | | | | | [place] | | | | | | | [place] | + + + + +---+ + | OUTPATIEN | Admitter: | [place] | | | [facility] | | T | Danielle | Family | 9 | | r | | | Tom | Medicine | 03:32:00 | | Physician | | | | | PM CDT | | s Hot | | | | | | | [place] | | | | | | | Silvia | + + + + +---+ + | OUTPATIEN | Admitter: | [place] | | | [facility] | | T | Danielle | Family | 9 | | r | | | Tom | Medicine | 03:32:00 | | Physician | | | | | PM CDT | | s Hot | | | | | | | [place] | | | | | | | Silvia | + + + + +---+ + | OUTPATIEN | Admitter: | [place] | | | [facility] | | T | Danielle | Family | 9 | | r | | | Tom | Medicine | 02:34:00 | | Physician | | | | | PM CDT | | s Hot | | | | | | | [place] | | | | | | | Silvia | + + + + +---+ + | Outpatien | Attender: | [place] | | | [facility] | | t | Danielle | Family | 9 | | r | | | HulseyAdm | Medicine | 01:34:00 | | Physician | | | itter: | | PM CDT - | | s Hot | | | Danilele | | | | [place] | | | Tom | | 9 | | [place] | | | | | 02:32:00 | | | | | | | PM CDT | | | + + + + +---+ + + + | PatientName : KAN COATS (73yo, M) ID# [id number]. Date/Time : | | 01/29/2019 02:00PMDOB : 1945[facility] | | MedicineProvider : DANIELLE HERNANDEZ DOInsuranceMed Primary: MEDICARE-[place] | | (MEDICARE)Insurance # : [id number] Secondary: BCBS-[place] - | | FEPInsurance # : [id number]/Group # : [id number]: CMX - | | Member is eligible. detailsChief ComplaintDizzinessPatient's Care | | TeamPrimary Care Provider: KEVIN HENRY [facility]Patient[facility] | | [facility]acies[facility] [address], | | [place] [address], , [place] | | [facility] ([facility]): [address] [address], | | , VitalsHt:5 ft 8 in (172.72 cm) | | 01/29/2019 01:35 pmWt:174 lbs (78.93 kg) 01/29/2019 01:39 pmBMI:26.5 | | 01/29/2019 01:39 pmBP:161/99 sitting L arm 01/29/2019 01:51 pm143/97 | | sitting R arm 01/29/2019 01:52 bgT3Kux:97% Room Air at Rest 01/29/2019 | | 01:39 pmPulse:95 bpm 01/29/2019 01:39 pmT:97.3 F? ear (36.28 C) | | 01/29/2019 01:39 pmAllergiesReviewed AllergiesNKDAMedicationsReviewed | | MedicationsName: diazePAM 5 mg tablet Take 1 tablet(s) every 4-6 hours | | by oral route as needed.Date: 01/25/19 filledSource: CaremarkName: | | lisinopril 10 mg tablet TAKE 1 TABLET BY MOUTH DAILYDate: 01/02/19 | | filledSource: CaremarkName: Medrol (Robert) 4 mg tablets in a dose pack as | | directedDate: 01/29/19 prescribedSource: DANIELLE HERNANDEZ, | | DOVaccinesVaccines not reviewed (last reviewed 11/01/2018)Vaccine Type: | | influenza, injectable, quadrivalentDate: 06/15/17mt.:Route:Site: | | Deltoid, RightNDC:Lot #: [id number].:Exp. Date: 02/15/18Date on VIS:VIS | | Given: 06/15/17Vaccinator:Vaccine Type: influenza, seasonal, | | injectableDate: 07/20/16Amt.:Route:Site:NDC:Lot #:[id number].:Exp. Date:Date | | on VIS:VIS Given:Video Player Mechanic:Vaccine Type: influenza, injectable, | | quadrivalentDate: 07/07/15Amt.:Route:Site: Deltoid, LeftNDC:Lot #: | | [id number].:Exp. Date: 03/18/16Date on VIS:VIS Given: | | 07/07/15Vaccinator:Vaccine Type: influenza, seasonal, injectableDate: | | 06/27/14Amt.:Route:Site: Deltoid, LeftNDC:Lot #: [id number].:Exp. Date: | | 03/18/15Date on VIS:VIS Given: 06/27/14Vaccinator:Vaccine Type: | | influenza, seasonal, injectableDate: 06/14/13Amt.:Route:Site: Deltoid, | | LeftNDC:Lot #: [id number].:Exp. Date: 11/28/13Date on VIS:VIS Given: | | 06/14/13Vaccinator:Vaccine Type: pneumococcal polysaccharide [id number]: | | 11/06/15Amt.:Route:Site: Deltoid, RightNDC:Lot #: [id number].:Exp. | | Date: 12/13/16Date on VIS:VIS Given: 11/06/15Vaccinator:Vaccine Type: | | pneumococcal conjugate PCV 13Date: 04/12/13Amt.:Route:Site: Deltoid, | | LeftNDC:Lot #: [id number].: Pfizer, IncExp. 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 in a | | clinical environment - Onset: 11/01/2018Family HistoryFamily History | | not reviewed (last reviewed 11/01/2018)Social HistorySocial History not | | reviewed (last reviewed 11/01/2018)Family Medicine and Medical | | Wellness Visit/IPPEAble to Care for Self: YLive alone or with others?: | | with othersAre you currently employed?: YNumber of children: 2Alcohol | | intake: NoneCaffeine intake: ModerateIllicit drugs: noneDiet: | | RegularExercise level: NoneHard of hearing or deaf in one or both | | ears?: NLegally blind in one or both eyes?: NSmoking Status: Former | | smokerChewing tobacco: nonePassive smoke exposure?: NSeat belts used | | routinely: YIs the patient ambulatory?: Yes: walks without | | restrictionsSingle or multi-level home/work?: single level homeMarital | | status: MarriedSurgical HistorySurgical History not reviewed (last | | reviewed 11/01/2018)* Shoulder joint surgery - leftPast Medical | | HistoryPast Medical History not reviewed (last reviewed | | 11/01/2018)HPIDizzinessReported by patient.Quality: unsteadiness; | | clumsiness; reports double visionSeverity: some effect on daily | | activitiesDuration: constant (on exertion)Onset/Timing: actual date of | | onset: (01/24/19)Context: smoker (1-2 a week); history of high Blood | | PressureAlleviating factors: lying down (and tilting his head to the | | side)Aggravating factors: bending/stooping; moving head; moving eyes; | | positional changeAssociated Symptoms: no facial weakness; no tingling | | of fingers; double vision; ringing in the bilateral ear; bilateral ear | | feel pressured; earache; headache (frontal)Prior Tests MRI brain and | | IAC w/GADPrior Treatments: diazepam 5 mg, states that it helps but it | | only makes him sleep,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 Jorge L presents today with a | | follow up on his dizziness. He had a MRI of the brain at [facility] and is | | here to discuss the results and treatment plan. States he is still very | | dizzy and it is affecting his daily living. Reports the diazepam helps | | but it makes him sleep too much.ROSConstitutional: Constitutional: no | | significant weight gain or loss and no fever.Eyes: Eyes: vision change | | (horizontal diplopia).Cardiovascular: Cardiovascular: no chest | | pain.Respiratory: Respiratory: no shortness of breath.Gastrointestinal: | | Gastrointestinal: no vomiting, constipation, diarrhea, or abdominal | | pain and nausea.Integumentary: Skin: no rashes.Neurologic: Neurologic: | | dizziness (a little better); Severe BLANDON.ROS as noted in the HPIPhysical | | ExamPatient is a 73-year-old male.Constitutional: General Appearance: | | well-developed. Level of Distress: NAD.Psychiatric: Mental Status: | | active and alert.Head: Head: normocephalic.Eyes: Pupils: PERRLA. | | Corneas: grossly intact. Fundoscopic: normal optic discs. EOM: EOMI. | | Sclerae: non-icteric.ENMT: Ears: no lesions on external ear, EACs | | clear, and TMs clear. Nose: no lesions on external nose and nasal | | passages clear. Oropharynx: moist mucous membranes and no | | erythema.Neck: Neck: supple. Lymph Nodes: no cervical LAD.Lungs: | | Respiratory effort: no dyspnea. Auscultation: breath sounds | | normal.Cardiovascular: Heart Auscultation: RRR. Neck vessels: no | | carotid bruits.Musculoskeletal:: Motor Strength and Tone: | | normal.Neurologic: Gait and Station: normal gait; no focal | | deficits.Skin: Inspection and palpation: no rash.Assessment / Plan1. | | Vertigo -Cont with diazepam---may cut does in 1/2 if gryyniF42: | | Dizziness and giddiness* Medrol (Robert) 4 mg tablets in a dose pack -as | | directed Qty: 1 dose-pack(s) of 21 Refills: 0 [facility] | | - LYNN2. Body mass index 25-29 - lcvwunzilsD91.26: Body mass index | | (BMI) 26.0-26.9, adultGoalsDiscussion NotesFollow up if no better in | | 4-5 days or worsening symptms. If no better, consider referral to | | ENTReturn to Office* DANIELLE HERNANDEZ DO for FOLLOW UP 30 at [place] | | [facility] on 05/07/2019 at 09:15 AM* DANIELLE HERNANDEZ DO for | | Established Patient 15 at [facility] on 05/07/2019 at | | 10:45 AMEncounter Sign-OffEncounter signed-off by DANIELLE HERNANDEZ DO, | | 02/04/2019. | + + + + + + +---+ + | OUTPATIEN | Admitter: | [place] | | | [facility] | | T | Danielle Sin | 9 | | r | | | Tom | Medicine | 12:51:00 | | Physician | | | | | PM CDT | | s Hot | | | | | | | [place] | | | | | | | Silvia | + + + + +---+ + | OUTPATIEN | Admitter: | [place] | | | [facility] | | T | Danielle | Family | 9 | | r | | | Tom | Medicine | 51: | | Physician | | | | | PM CDT | | s Hot | | | | | | | [place] | | | | | | | Silvia | + + + + +---+ + | OUTPATIEN | Admitter: | [place] | | | [facility] | | T | Danielle | Family | 9 | | r | | | Tom | Medicine | :51: | | Physician | | | | | PM CDT | | s Hot | | | | | | | [place] | | | | | | | [place] | + + + + +---+ + | OUTPATIEN | Admitter: | [place] | | | [facility] | | T | Danielle | Family | 9 | | r | | | Tom | Medicine | 12:38:00 | | Physician | | | | | PM CDT | | s Hot | | | | | | | [place] | | | | | | | Silvia | + + + + +---+ + | Outpatien | Attender: | | | | National | | t | Danielle | | 9 | | Park | | | [facility] | | 11:30:00 | | Medical | | | sultant: | | AM CDT - | | Center | | | Danielle | | | | ([facility]) | | | Tom | | 9 | | Hospital | | | | | 11:06:00 | | | | | | | AM CDT | | | + + + + +---+ + | OUTPATIEN | Admitter: | [place] | | | [facility] | | T | Danielle | Family | 9 | | r | | | Tom | Medicine | 11:18:00 | | Physician | | | | | AM CDT | | s Hot | | | | | | | [place] | | | | | | | Silvia | + + + + +---+ + | OUTPATIEN | Attender: | [place] | | | [facility] | | T | Danielle | Family | 9 | | r | | | Tom | Medicine | 10:26:01 | | Physician | | | | | AM CDT - | | s Hot | | | | | | | [place] | | | | | 9 | | [place] | | | | | 11:18:52 | | | | | | | AM CDT | | | + + + + +---+ + | OUTPATIEN | Admitter: | [place] | | | [facility] | | T | Danielle | Family | 9 | | r | | | Tom | Medicine | :: | | Physician | | | | | AM CDT | | s Hot | | | | | | | [place] | | | | | | | Silvia | + + + + +---+ + | OUTPATIEN | Admitter: | [place] | | | [facility] | | T | Danielle | Family | 9 | | r | | | Tom | Medicine | :: | | Physician | | | | | AM CDT | | s Hot | | | | | | | [place] | | | | | | | Lexa | + + + + +---+ + | Outpatien | Attender: | [place] | | | [facility] | | t | Danielle | Family | 9 | | r | | | HulseyAdm | Medicine | ::00 | | Physician | | | itter: | | AM CDT - | | s Hot | | | Danielle | | | | [place] | | | Tom | | 9 | | Silvia | | | | | 10:18:00 | | | | | | | AM CDT | | | + + + + +---+ + + + | PatientName : KAN COATS (73yo, M) ID# [id number]. Date/Time : | | 01/25/2019 09:45AMDOB : 1945[facility] Dept. : [facility] | | MedicineProvider : Tony JIMENEZ Primary: MEDICARE-[place] | | (MEDICARE)Insurance # : [id number] Secondary: BCBS-[place] - | | FEPInsurance # : [id number]/Group # : [id number]: CMX - | | Member is eligible. detailsChief ComplaintDizzinessPatient's Care | | TeamPrimary Care Provider: KEVIN HENRY CNSPatient's | | [facility] [address], | | [place] [address], , [place] | | [facility] ([facility]): [address] [facility] [facility] [address], | | , VitalsHt:5 ft 8 in (172.72 cm) | | 01/25/2019 09:33 amWt:173 lbs 12.8 oz (78.83 kg) 01/25/2019 09:33 | | amBMI:26.4 01/25/2019 09:33 amBP:160/92 sitting L arm 01/25/2019 09:33 | | am166/94 sitting L arm 01/25/2019 09:42 hdX7Aqa:98% Room Air at Rest | | 01/25/2019 09:33 amPulse:73 bpm regular 01/25/2019 09:33 | | amAllergiesReviewed AllergiesNKDAMedicationsReviewed MedicationsName: | | diazePAM 5 mg tablet Take 1 tablet(s) every 4-6 hours by oral route as | | needed.Note: for dizzinessDate: 01/25/19 prescribedSource: DANIELLE | | Renee HERNANDEZ: lisinopril 10 mg tablet TAKE 1 TABLET BY MOUTH | | DAILYDate: 01/02/19 filledSource: CaremarkVaccinesVaccines not | | reviewed (last reviewed 11/01/2018)Vaccine Type: influenza, injectable, | | quadrivalentDate: 06/15/17mt.:Route:Site: Deltoid, RightNDC:Lot #: | | [id number].:Exp. Date: 02/15/18Date on VIS:VIS Given: | | 06/15/17Vaccinator:Vaccine Type: influenza, seasonal, injectableDate: | | 07/20/16Amt.:Route:Site:[facility]:Lot #:[id number].:Exp. Date:Date on VIS:VIS | | Given:Video Player Mechanic:Vaccine Type: influenza, injectable, quadrivalentDate: | | 07/07/15Amt.:Route:Site: Deltoid, LeftNDC:Lot #: [id number].:Exp. | | Date: 03/18/16Date on VIS:VIS Given: 07/07/15Vaccinator:Vaccine Type: | | influenza, seasonal, injectableDate: 06/27/14Amt.:Route:Site: Deltoid, | | LeftNDC:Lot #: [id number].:Exp. Date: 03/18/15Date on VIS:VIS Given: | | 06/27/14Vaccinator:Vaccine Type: influenza, seasonal, injectableDate: | | 06/14/13Amt.:Route:Site: Deltoid, LeftNDC:Lot #: [id number].:Exp. Date: | | 11/28/13Date on VIS:VIS Given: 06/14/13Vaccinator:Vaccine Type: | | pneumococcal polysaccharide [id number]: 11/06/15Amt.:Route:Site: | | Deltoid, RightNDC:Lot #: [id number].:Exp. Date: 12/13/16Date on VIS:VIS | | Given: 11/06/15Vaccinator:Vaccine Type: pneumococcal conjugate PCV | | 13Date: 04/12/13Amt.:Route:Site: Deltoid, LeftNDC:Lot #: [id number].: | | Pfizer, IncExp. 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 | | environment - Onset: 11/01/2018Family HistoryFamily History not | | reviewed (last reviewed 11/01/2018)Social HistorySocial History not | | reviewed (last reviewed 11/01/2018)Family Medicine and Medical Wellness | | Visit/IPPEAble to Care for Self: YLive alone or with others?: with | | othersAre you currently employed?: YNumber of children: 2Alcohol | | intake: NoneCaffeine intake: ModerateIllicit drugs: noneDiet: | | RegularExercise level: NoneHard of hearing or deaf in one or both | | ears?: NLegally blind in one or both eyes?: NSmoking Status: Former | | smokerChewing tobacco: nonePassive smoke exposure?: NSeat belts used | | routinely: YIs the patient ambulatory?: Yes: walks without | | restrictionsSingle or multi-level home/work?: single level homeMarital | | status: MarriedSurgical HistorySurgical History not reviewed (last | | reviewed 11/01/2018)* Shoulder joint surgery - leftPast Medical | | HistoryPast Medical History not reviewed (last reviewed | | 11/01/2018)HPIDizzinessReported by patient.Quality: unsteadiness; | | clumsinessSeverity: some effect on daily activitiesDuration: | | constantOnset/Timing: actual date of onset: (yesterday)Context: history | | of high Blood PressureAlleviating factors: lying downAggravating | | factors: bending/stooping; moving head; moving eyes; positional | | changeAssociated Symptoms: no facial weakness; no tingling of fingers; | | double vision; ringing in the bilateral ear; headache (frontal); | | vomiting, fatigueROSConstitutional: Constitutional: no significant | | weight gain or loss and no fever.Eyes: Eyes: vision change (horizontal | | diplopia).Cardiovascular: Cardiovascular: no chest pain.Respiratory: | | Respiratory: no shortness of breath.Gastrointestinal: Gastrointestinal: | | no vomiting, constipation, diarrhea, or abdominal pain and | | nausea.Integumentary: Skin: no rashes.Neurologic: Neurologic: | | dizziness; Severe BLANDON.ROS as noted in the HPIPhysical ExamPatient is a | | 73-year-old male.Constitutional: General Appearance: well-developed. | | Level of Distress: NAD and acutely ill.Psychiatric: Mental Status: | | active and alert.Head: Head: normocephalic.Eyes: Pupils: PERRLA. | | Corneas: grossly intact. Fundoscopic: normal optic discs. EOM: EOMI. | | Sclerae: non-icteric.ENMT: Ears: no lesions on external ear, EACs | | clear, and TMs clear. Nose: no lesions on external nose and nasal | | passages clear. Oropharynx: moist mucous membranes and no | | erythema.Neck: Neck: supple. Lymph Nodes: no cervical LAD.Lungs: | | Respiratory effort: no dyspnea. Auscultation: breath sounds | | normal.Cardiovascular: Heart Auscultation: RRR. Neck vessels: no | | carotid bruits.Abdomen: Bowel Sounds: normal. Inspection and Palpation: | | soft.Musculoskeletal:: Motor Strength and Tone: normal.Neurologic: | | Gait and Station: normal gait; no focal deficits.Skin: Inspection and | | palpation: no rash.Assessment / Plan1. Dizziness -Verbal report MRI--no | | acute vujzovP56: Dizziness and giddiness* DIZZINESS: CARE | | INSTRUCTIONS* ELECTROCARDIOGRAM* diazepam 5 mg tablet -Take 1 tablet(s) | | every 4-6 hours by oral route as needed. Qty: 30 tablet(s) Refills: 0 | | Pharmacy: [facility]. Body mass index 25-29 - | | ogbdnambtkK94.26: Body mass index (BMI) 26.0-26.9, adult* LEARNING | | ABOUT HEALTHY WEIGHT3. TqfinttrU94.2: Diplopia4. TobmqskhF24: Headache* | | MRI, BRAIN, W/O CONTRAST5. Essential hypertension -Medications are | | eyrucdaxS36: Essential (primary) hypertensionELECTROCARDIOGRAM* | | Result:- Result:GoalsDiscussion NotesFollow up if no better in 4-5 days | | or worsening symptmsReturn to Office* to see DANIELLE HERNANDEZ DO at | | [facility] on or around 05/05/2019* DANIELLE HERNANDEZ DO | | for Established Patient 15 at [facility] on 05/07/2019 at | | 10:45 AMEncounter Sign-OffEncounter signed-off by DANIELLE HERNANDEZ DO, | | 01/26/2019. | + + + + + + +---+ + | OUTPATIEN | Admitter: | [facility] | | | National | | T | | [facility] | 9 | | Gay | | | ANJUM_Jitendra | | 02:11:00 | | Medical | | | [place] | ENDOSCOPY | PM CDT | | Center | | | | CENTER | | | Clinics | + + + + +---+ + | OUTPATIEN | Admitter: | [facility] | | | National | | T | | ALISIA CORTES | 9 | | Park | | | KETCHER_A | | 02:00:00 | | Medical | | | [place] | ENDOSCOPY | PM CDT | | Center | | | | CENTER | | | Clinics | + + + + +---+ + | OUTPATIEN | Admitter: | [facility] | | | National | | T | | [facility] | 9 | | Park | | | [facility] | | 02:00:00 | | Medical | | | [place] | ENDOSCOPY | PM CDT | | Center | | | | CENTER | | | Clinics | + + + + +---+ + | OUTPATIEN | Admitter: | [facility] | | | National | | T | | [facility] | 9 | | Park | | | [facility] | | 01:58:00 | | Medical | | | [place] | ENDOSCOPY | PM CDT | | Center | | | | CENTER | | | Clinics | + + + + +---+ + | OUTPATIEN | Admitter: | [facility] | | | National | | T | | [facility] | 9 | | Park | | | [facility] | | 01:58:00 | | Medical | | | [facility] | ENDOSCOPY | PM CDT | | Center | | | | CENTER | | | Clinics | + + + + +---+ + | OUTPATIEN | Admitter: | [facility] | | | National | | T | | [facility] | 9 | | Park | | | [facility] | | 01:58:00 | | Medical | | | [facility] | ENDOSCOPY | PM CDT | | Center | | | | CENTER | | | Clinics | + + + + +---+ + | OUTPATIEN | Admitter: | [facility] | | | National | | T | | [facility] | 9 | | Park | | | K[facility] | | 02:09:00 | | Medical | | | [facility] | ENDOSCOPY | PM CDT | | Center | | | | CENTER | | | Clinics | + + + + +---+ + | OUTPATIEN | Admitter: | [facility] | | | National | | T | | [facility] | 9 | | Park | | | [facility] | | 12:48:00 | | Medical | | | [place] | ENDOSCOPY | PM CDT | | Center | | | | CENTER | | | Clinics | + + + + +---+ + | OUTPATIEN | Admitter: | [facility] | | | National | | T | | [facility] | 9 | | [facility] | | | [facility] | | 12:48:00 | | Medical | | | [facility] | ENDOSCOPY | PM CDT | | Center | | | | CENTER | | | Clinics | + + + + +---+ + | OUTPATIEN | Admitter: | NPEC_NATI | | | National | | T | | [facility] | 9 | | [facility] | | | [facility] | | 12:48:00 | | Medical | | | [facility] | ENDOSCOPY | PM CDT | | Center | | | | CENTER | | | Clinics | + + + + +---+ + | OUTPATIEN | Admitter: | NPGI_NATI | | | National | | T | DR | [facility] | 9 | | [facility] | | | [facility] | GI | :02:00 | | Medical | | | [facility] | SERVICES | PM CDT | | Center | | | | | | | Clinics | + + + + +---+ + | OUTPATIEN | Admitter: | NPEC_NATI | | | National | | T | | [facility] | 9 | | [facility] | | | [facility] | | :02:00 | | Medical | | | SC | ENDOSCOPY | PM CDT | | Center | | | | CENTER | | | Clinics | + + + + +---+ + | OUTPATIEN | Admitter: | NPEC_NATI | | | National | | T | | [facility] | 9 | | [facility] | | | [facility] | | 02:02:00 | | Medical | | | SC | ENDOSCOPY | PM CDT | | Center | | | | CENTER | | | Clinics | + + + + +---+ + | OUTPATIEN | Admitter: | NPGI_NATI | | | National | | T | DR | [facility] | 9 | | [facility] | | | [facility] | GI | 02:00:00 | | Medical | | | [facility] | SERVICES | PM CDT | | Center | | | | | | | Clinics | + + + + +---+ + | OUTPATIEN | Admitter: | NPGI_NATI | | | National | | T | DR | [facility] | 9 | | Park | | | [facility] | GI | 02:00:00 | | Medical | | | [facility] | SERVICES | PM CDT | | Center | | | | | | | Clinics | + + + + +---+ + | OUTPATIEN | Admitter: | NPGI_NATI | | | National | | T | DR | [facility] | 9 | | Park | | | [facility] | GI | 01:59:00 | | Medical | | | [facility] | SERVICES | PM CDT | | Center | | | | | | | Clinics | + + + + +---+ + | OUTPATIEN | Admitter: | NPGI_NATI | | | National | | T | DR | [facility] | 9 | | Park | | | [facility] | GI | 01:56:00 | | Medical | | | [facility] | SERVICES | PM CDT | | Center | | | | | | | Clinics | + + + + +---+ + | OUTPATIEN | Admitter: | NPEC_NATI | | | National | | T | | [facility] | 9 | | [facility] | | | [facility] | | 01:55:00 | | Medical | | | SC | ENDOSCOPY | PM CDT | | Center | | | | CENTER | | | Clinics | + + + + +---+ + | OUTPATIEN | Admitter: | NPEC_NATI | | | National | | T | | [facility] | 9 | | [facility] | | | [facility] | | 01:55:00 | | Medical | | | SC | ENDOSCOPY | PM CDT | | Center | | | | CENTER | | | Clinics | + + + + +---+ + | OUTPATIEN | Admitter: | [place] | | | [facility] | | T | Danielle | Family | 9 | | r | | | Tom | Medicine | 05:34:00 | | Physician | | | | | PM COMMERCIAL CONSTRUCTION ESTIMATOR | | s Hot | | | | | | | [place] | | | | | | | Lexa | + + + + +---+ + | OUTPATIEN | Attender: | [place] | | | [facility] | | T | Danielle | Family | 9 | | r | | | Tom | Medicine | 02:17: | | Physician | | | | | PM COMMERCIAL CONSTRUCTION ESTIMATOR | | s Hot | | | | | | | [place] | | | | | | | Lexa | + + + + +---+ + | OUTPATIEN | Attender: | [place] | | | [facility] | | T | Danielle | Family | 9 | | r | | | Tom | Medicine | 05:47:00 | | Physician | | | | | PM COMMERCIAL CONSTRUCTION ESTIMATOR | | s Hot | | | | | | | [place] | | | | | | | Lexa | + + + + +---+ + | OUTPATIEN | Admitter: | [place] | | | [facility] | | T | Danielle | Family | 9 | | r | | | Tom | Medicine | 02:01:00 | | Physician | | | | | PM COMMERCIAL CONSTRUCTION ESTIMATOR | | s Hot | | | | | | | [place] | | | | | | | Silvia | + + + + +---+ + | OUTPATIEN | Admitter: | NPGI_NATI | | | National | | T | DR | [facility] | 9 | | Park | | | [facility] | GI | :39:00 | | Medical | | | [facility] | SERVICES | AM COMMERCIAL CONSTRUCTION ESTIMATOR | | Center | | | | | | | Clinics | + + + + +---+ + | OUTPATIEN | | NPGI_NATI | | | National | | T | | [facility] | 9 | | Park | | | | GI | 10:39:00 | | Medical | | | | SERVICES | AM COMMERCIAL CONSTRUCTION ESTIMATOR | | Center | | | | | | | Clinics | + + + + +---+ + | OUTPATIEN | Admitter: | NPEC_NATI | | | National | | T | | [facility] | 9 | | Park | | | [facility] | | 10:39:00 | | Medical | | | [facility] | ENDOSCOPY | AM COMMERCIAL CONSTRUCTION ESTIMATOR | | Center | | | | CENTER | | | Clinics | + + + + +---+ + | OUTPATIEN | | NPEC_NATI | | | National | | T | | [facility] | 9 | | Park | | | | | 10:38:00 | | Medical | | | | ENDOSCOPY | AM COMMERCIAL CONSTRUCTION ESTIMATOR | | Center | | | | CENTER | | | Clinics | + + + + +---+ + | OUTPATIEN | Attender: | [place] | | | [facility] | | T | Danielle | Family | 9 | | r | | | Tom | Medicine | 10:14:00 | | Physician | | | | | AM COMMERCIAL CONSTRUCTION ESTIMATOR | | s Hot | | | | | | | [place] | | | | | | | Silvia | + + + + +---+ + | OUTPATIEN | Attender: | [place] | | | [facility] | | T | KEVIN | Family | 9 | | r | | | CARL | Medicine | 05:17: | | Physician | | | | | PM COMMERCIAL CONSTRUCTION ESTIMATOR | | s Hot | | | | | | | [place] | | | | | | | Silvia | + + + + +---+ + | OUTPATIEN | Attender: | [place] | | | [facility] | | T | KEVIN | Family | 9 | | r | | | CARL | Medicine | 05:17:00 | | Physician | | | | | PM COMMERCIAL CONSTRUCTION ESTIMATOR | | s Hot | | | | | | | [place] | | | | | | | Silvia | + + + + +---+ + | OUTPATIEN | Attender: | [place] | | | [facility] | | T | KEVIN | Family | 9 | | r | | | CARL | Medicine | 05:17:00 | | Physician | | | | | PM COMMERCIAL CONSTRUCTION ESTIMATOR | | s Hot | | | | | | | [place] | | | | | | | Lexa | + + + + +---+ + | OUTPATIEN | Attender: | [place] | | | [facility] | | T | Danielle | Family | 9 | | r | | | Tom | Medicine | 04:41:00 | | Physician | | | | | PM COMMERCIAL CONSTRUCTION ESTIMATOR | | s Hot | | | | | | | [place] | | | | | | | Lexa | + + + + +---+ + | OUTPATIEN | Admitter: | [place] | | | [facility] | | T | Danielle | Family | 9 | | r | | | Tom | Medicine | 04:29:00 | | Physician | | | | | PM COMMERCIAL CONSTRUCTION ESTIMATOR | | s Hot | | | | | | | [place] | | | | | | | Lexa | + + + + +---+ + | OUTPATIEN | Admitter: | [place] | | | [facility] | | T | Danielle | Family | 9 | | r | | | Tom | Medicine | :29: | | Physician | | | | | PM COMMERCIAL CONSTRUCTION ESTIMATOR | | s Hot | | | | | | | [place] | | | | | | | Silvia | + + + + +---+ + | OUTPATIEN | Admitter: | [place] | | | [facility] | | T | Danielle | Family | 9 | | r | | | Tom | Medicine | : | | Physician | | | | | PM COMMERCIAL CONSTRUCTION ESTIMATOR | | s Hot | | | | | | | [place] | | | | | | | Silvia | + + + + +---+ + | OUTPATIEN | Admitter: | [place] | | | [facility] | | T | Danielle | Family | 9 | | r | | | Tom | Medicine | :13:00 | | Physician | | | | | PM COMMERCIAL CONSTRUCTION ESTIMATOR | | s Hot | | | | | | | [place] | | | | | | | Silvia | + + + + +---+ + | Outpatien | Attender: | [facility] | | | [facility] | | t | Danielle | Family | 9 | | r | | | TomAdm | Medicine | 02:13:00 | | Physician | | | itter: | | PM COMMERCIAL CONSTRUCTION ESTIMATOR - | | s Hot | | | Danielle | | | | [place] | | | Tom | | 9 | | Lexa | | | | | 03:29:00 | | | | | | | PM COMMERCIAL CONSTRUCTION ESTIMATOR | | | + + + + +---+ + + + | PatientName : KAN COATS (73yo, M) ID# [id number]. Date/Time : | | 11/06/2018 02:45PMDOB : 1945[facility] | | MedicineProvider : Aubree JIMENEZMed Primary: [place]ICARE-[place] | | (MEDICARE)Insurance # : [id number] Secondary: [place] - | | FEPInsurance # : [id number]/Group # : [id number]: CMX - | | Member is eligible. detailsChief Complainturinary frequency, skin | | lesionPatient's Care TeamPrimary Care Provider: KEVIN HENRY, | | [facility]SPatient[facility] [place] [facility] [address] | | [facility] [place] [address], , Fax [phone]) | | [phone] [place] ([facility]): [address], | | [place] [address], , VitalsHt:5 ft 8 | | in (172.72 cm) 11/06/2018 02:38 pmWt:177 lbs 3.2 oz (80.38 kg) | | 11/06/2018 02:38 pmBMI:26.9 11/06/2018 02:38 pmBP:150/112 sitting R arm | | 11/06/2018 02:42 loL4Eqo:97% Room Air at Rest 11/06/2018 02:43 | | pmPulse:97 bpm regular 11/06/2018 02:43 pmAllergiesReviewed | | AllergiesNKDAMedicationsReviewed MedicationsName: lisinopril 10 mg | | tablet TAKE 1 TABLET BY MOUTH DAILYDate: 10/02/18 filledSource: | | CaremarkVaccinesVaccines not reviewed (last reviewed 11/01/2018)Vaccine | | Type: influenza, injectable, quadrivalentDate: | | 06/15/17mt.:Route:Site: Deltoid, RightNDC:Lot #: [id number].:Exp. Date: | | 02/15/18Date on VIS:VIS Given: 06/15/17Vaccinator:Vaccine Type: | | influenza, seasonal, injectableDate: 07/20/16Amt.:Route:Site:NDC:Lot | | #:Mfr.:Exp. Date:Date on VIS:VIS Given:Video Player Mechanic:Vaccine Type: | | influenza, injectable, quadrivalentDate: 07/07/15Amt.:Route:Site: | | Deltoid, LeftNDC:Lot #: [id number].:Exp. Date: 03/18/16Date on VIS:VIS | | Given: 07/07/15Vaccinator:Vaccine Type: influenza, seasonal, | | injectableDate: 06/27/14Amt.:Route:Site: Deltoid, LeftNDC:Lot #: | | [id number].:Exp. Date: 03/18/15Date on VIS:VIS Given: | | 06/27/14Vaccinator:Vaccine Type: influenza, seasonal, injectableDate: | | 06/14/13Amt.:Route:Site: Deltoid, LeftNDC:Lot #: [id number].:Exp. Date: | | 11/28/13Date on VIS:VIS Given: 06/14/13Vaccinator:Vaccine Type: | | pneumococcal polysaccharide [id number]: 11/06/15Amt.:Route:Site: | | [facility]OUT[facility]:Lot #: [id number].:Exp. Date: 12/13/16Date on VIS:VIS | | Given: 11/06/15Vaccinator:Vaccine Type: pneumococcal conjugate PCV | | 13Date: 04/12/13Amt.:Route:Site: Deltoid, LeftND:Lot #: [id number].: | | Pfizer, IncExp. 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 | | environment - Onset: 11/01/2018Family HistoryFamily History not | | reviewed (last reviewed 11/01/2018)Social HistorySocial History not | | reviewed (last reviewed 11/01/2018)Family Medicine and Medical Wellness | | Visit/IPPEAble to Care for Self: YLive alone or with others?: with | | othersAre you currently employed?: YNumber of children: 2Alcohol | | intake: NoneCaffeine intake: ModerateIllicit drugs: noneDiet: | | RegularExercise level: NoneHard of hearing or deaf in one or both | | ears?: NLegally blind in one or both eyes?: NSmoking Status: Former | | smokerChewing tobacco: nonePassive smoke exposure?: NSeat belts used | | routinely: YIs the patient ambulatory?: Yes: walks without | | restrictionsSingle or multi-level home/work?: single level homeMarital | | status: MarriedSurgical HistorySurgical History not reviewed (last | | reviewed 11/01/2018)* Shoulder joint surgery - leftPast Medical | | HistoryPast Medical History not reviewed (last reviewed | | 11/01/2018)HPINocturia/Prostate ProblemsReported by patient.Severity: | | number of times at night 1Course: no changeAssociated Symptoms: no | | urinary frequency; no urgency; no incontinence; no urinary hesitancy; | | no problems with stream of urine; no straining; no blood in urine; no | | pelvic painNotes:He is here today to have a prostate check. He would | | like to discuss referral to GI Moraima LesionReported by | | patient.Location: arms (bilateral)Quality: no symptomsDuration: started | | 4 year(s) agoContext: no known triggerAssociated Symptoms: no fever; | | no cold symptoms; no nausea; no vomiting; no diarrhea; no urinary | | symptoms; no skin flakes; no scabbing; no bruising; no draining; no | | lesions multiplying; no lesions spreadingROSConstitutional: | | Constitutional: no significant weight gain or loss and no | | fever.Cardiovascular: Cardiovascular: no chest pain.Respiratory: | | Respiratory: no shortness of breath.Gastrointestinal: Gastrointestinal: | | no nausea, vomiting, constipation, diarrhea, or abdominal | | pain.Genitourinary: Genitourinary: see hpi.Integumentary: Skin: no | | rashes and growths/lesions.Endocrine: Endocrine: no fatigue.Physical | | ExamPatient is a 73-year-old male.Constitutional: General Appearance: | | healthy-appearing, well-nourished, and well-developed. Level of | | Distress: NAD.Psychiatric: Mental Status: active and alert.Head: Head: | | normocephalic.ENMT: Ears: no lesions on external ear, EACs clear, and | | TMs clear. Nose: no lesions on external nose and nasal passages clear. | | Oropharynx: moist mucous membranes and no erythema.Neck: Neck: supple. | | Lymph Nodes: no cervical LAD.Lungs: Respiratory effort: no dyspnea. | | Auscultation: breath sounds normal.Cardiovascular: Heart Auscultation: | | RRR. Neck vessels: no carotid bruits.Abdomen: Bowel Sounds: normal. | | Inspection and Palpation: soft.Musculoskeletal:: Motor Strength and | | Tone: normal.Neurologic: Gait and Station: normal gait; no focal | | deficits.Skin: Inspection and palpation: lesion (multiple Ak's. Lg SK | | right ear).Procedure DocumentationDestruction of premalignant | | lesion:Destruction of premalignant lesionAfter risks, benefits, and | | alternatives were discussed, informed consent was obtained.Cryosurgery | | was performed in two freeze/thaw cycles on the patient's bilateralfaces | | and forearms on 7 lesions ranging in size from mm to mm in | | diameter.The patient tolerated the entire treatment without | | complications.Post-procedure care was discussed. Wound care sheet and | | aftercare instructions were provided.Shave Biopsy:Location: right upper | | superior earSize of lesion:After risks and benefits were discussed, | | informed consent was obtained. The area was prepped with . Adequate | | anesthesia was obtained using Lidocaine 2% without Epi. The shave was | | taken using a ; hemostasis was obtained with with electrocautery. | | Specimen sent to pathology.Patient tolerated procedure well. Polysporin | | and a standard bandage were applied. Wound care instructions were | | given.Assessment / Plan1. Raised prostate specific gfhswwtN75.20: | | Elevated prostate specific antigen [PSA]* PROSTATE BIOPSY AND | | ULTRASOUND: ABOUT THIS TEST2. Actinic keratosis -esee procedure | | notL57.0: Actinic keratosis* ACTINIC KERATOSIS: CARE INSTRUCTIONS3. | | Labile hypertension due to being in a clinical hndxflphedgL73.8: Other | | secondary hypertension4. Essential hypertension -Medications are | | reviewed with patient. Any issues where discussed. No current changes | | are made at this timeI10: Essential (primary) hypertension5. Skin | | wyagzqW38.9: Disorder of the skin and subcutaneous tissue, unspecified* | | SKIN LESIONS: CARE INSTRUCTIONS* SURGICAL PATHOLOGY -Specimen source: | | Skin Note to Lab: RT ear skin lesion (inflamed actinic | | keratosis)Anatomical Site: RT ear6. Screening for malignant neoplasm of | | zjjsgN04.11: Encounter for screening for malignant neoplasm of colon* | | FECAL OCCULT BLOODGoalsReturn to Office* to see DANIELLE HERNANDEZ DO at | | [facility] on or around 05/05/2019* DANIELLE HERNANDEZ DO | | for Established Patient 15 at [facility] on 05/07/2019 at | | 10:45 AMEncounter Sign-OffEncounter signed-off by DANIELLE HERNANDEZ DO, | | 11/12/2018. | + + + + + + +---+ + | OUTPATIEN | Attender: | [place] | | | [facility] | | T | KEVIN | [facility] | 9 | | r | | | [place] | [facility] | 09:47:00 | | Physician | | | | | AM COMMERCIAL CONSTRUCTION ESTIMATOR | | s Hot | | | | | | | [place] | | | | | | | [place] | + + + + +---+ + | OUTPATIEN | Admitter: | [place] | | | [facility] | | T | Danielle | Family | 9 | | r | | | Tom | Medicine | 09:31:00 | | Physician | | | | | AM COMMERCIAL CONSTRUCTION ESTIMATOR | | s Hot | | | | | | | [place] | | | | | | | [place] | + + + + +---+ + | OUTPATIEN | Attender: | [place] | | | [facility] | | T | KEVIN | Family | 9 | | r | | | [place] | Medicine | 09:48:00 | | Physician | | | | | PM COMMERCIAL CONSTRUCTION ESTIMATOR | | s Hot | | | | | | | [place] | | | | | | | [place]a | + + + + +---+ + | OUTPATIEN | Attender: | [place] | | | [facility] | | T | KEVIN | Family | 9 | | r | | | [place] | Medicine | 09:46:00 | | Physician | | | | | PM COMMERCIAL CONSTRUCTION ESTIMATOR | | s Hot | | | | | | | [place] | | | | | | | Lexa | + + + + +---+ + | OUTPATIEN | Attender: | [place] | | | [facility] | | T | KEVIN | Family | 9 | | r | | | CARL | Medicine | 09:45:00 | | Physician | | | | | PM COMMERCIAL CONSTRUCTION ESTIMATOR | | s Hot | | | | | | | [place] | | | | | | | Silvia | + + + + +---+ + | OUTPATIEN | Attender: | [place] | | | [facility] | | T | KEVIN | Family | 9 | | r | | | CARL | Medicine | 11:18:00 | | Physician | | | | | AM COMMERCIAL CONSTRUCTION ESTIMATOR | | s Hot | | | | | | | [place] | | | | | | | Lexa | + + + + +---+ + | OUTPATIEN | Admitter: | [place] | | | [facility] | | T | Danielle | Family | 9 | | r | | | Tom | Medicine | 11:14:00 | | Physician | | | | | AM COMMERCIAL CONSTRUCTION ESTIMATOR | | s Hot | | | | | | | [place] | | | | | | | Silvia | + + + + +---+ + | OUTPATIEN | Admitter: | [place] | | | [facility] | | T | Danielle | Family | 9 | | r | | | Tom | Medicine | : | | Physician | | | | | AM COMMERCIAL CONSTRUCTION ESTIMATOR | | s Hot | | | | | | | [place] | | | | | | | Silvia | + + + + +---+ + | OUTPATIEN | Admitter: | Dick | | | [facility] | | T | Danielle | Family | 9 | | r | | | Tom | Medicine | 14:00 | | Physician | | | | | AM COMMERCIAL CONSTRUCTION ESTIMATOR | | s Hot | | | | | | | [place] | | | | | | | Lexa | + + + + +---+ + | OUTPATIEN | Admitter: | Dick | | | [facility] | | T | Danielle | Family | 9 | | r | | | Tmo | Medicine | ::00 | | Physician | | | | | AM COMMERCIAL CONSTRUCTION ESTIMATOR | | s Hot | | | | | | | [place] | | | | | | | Lexa | + + + + +---+ + | OUTPATIEN | Admitter: | [place] | | | [facility] | | T | Danielle | Family | 9 | | r | | | Tom | Medicine | : | | Physician | | | | | AM COMMERCIAL CONSTRUCTION ESTIMATOR | | s Hot | | | | | | | [place] | | | | | | | Lexa | + + + + +---+ + | OUTPATIEN | Admitter: | [place] | | | [facility] | | T | Danielle | Family | 9 | | r | | | Tom | Medicine | :: | | Physician | | | | | AM COMMERCIAL CONSTRUCTION ESTIMATOR | | s Hot | | | | | | | [place] | | | | | | | Silvia | + + + + +---+ + | Outpatien | Attender: | [place] | | | [facility] | | t | KEVIN | Family | 9 | | r | | | [place] | Medicine | :12:00 | | Physician | | | dmitter: | | AM COMMERCIAL CONSTRUCTION ESTIMATOR - | | s Hot | | | Danielle | | | | [place] | | | Tom | | 9 | | Lexa | | | | | 10:14:00 | | | | | | | AM COMMERCIAL CONSTRUCTION ESTIMATOR | | | + + + + +---+ + + + | PatientName : KAN COATS (73yo, M) ID# [id number]. Date/Time : | | 11/01/2018 09:30AMDOB : 1945[facility] Dept. : [facility] | | MedicineProvider : MAGNO PINAInsuranceMed Primary: MEDICARE-[place] | | (MEDICARE)Insurance # : [id number] Secondary: [place]BS-[place] - | | FEPInsurance # : [id number]/Group # : [id number]: CMX - | | Member is eligible. detailsChief ComplaintMedicare annual wellness | | visit- maleMr. Coats is here today for a Medicare Wellness Visit. | | Over the last 4 weeks he states that things have been going "pretty | | good", rates his health as "good", and is "very confident" that he | | can control and manage most of his health problems. He is at "no risk" | | for falls with no falls in the past 12 months. His physical and | | emotional health does not affect his activities of daily living. No | | hospitalizations, ER, or urgent care clinic visits in the past 12 | | months.Patient's Care TeamPrimary Care Provider: KEVIN HENRY, | | CN[facility]at[facility] [place] [facility] ([facility]): [address] | | [facility] [address], , Fax [phone] | | [phone] ([facility]): [address], | | [place] [address], , VitalsHt:5 ft 8 | | in (172.72 cm) 11/01/2018 09:33 amWt:176 lbs (79.83 kg) 11/01/2018 | | 09:33 amBMI:26.8 11/01/2018 09:33 amBP:170/104 sitting L arm 11/01/2018 | | 09:33 am160/94 L arm 11/06/2018 07:26 amNotes:His Blood pressure | | readings are 130's/80'sd he states it is always higher due to "nerves" | | at office 11/01/2018 10:11 psS5Gos:98% Room Air at Rest 11/01/2018 | | 09:33 amPulse:83 bpm 11/01/2018 09:33 amT:98.3 F? ear (36.83 C) | | 11/01/2018 09:33 amAllergiesReviewed AllergiesNKDAMedicationsReviewed | | MedicationsName: lisinopril 10 mg tablet TAKE 1 TABLET BY MOUTH | | DAILYDate: 10/02/18 filledSource: CaremarkVaccinesReviewed | | VaccinesVaccine Type: influenza, injectable, quadrivalentDate: | | 06/15/17mt.:Route:Site: Deltoid, RightNDC:Lot #: [id number].:Exp. Date: | | 02/15/18Date on VIS:VIS Given: 06/15/17Vaccinator:Vaccine Type: | | influenza, seasonal, injectableDate: 07/20/16Amt.:Route:Site:NDC:Lot | | #:Mfr.:Exp. Date:Date on VIS:VIS Given:Video Player Mechanic:Vaccine Type: | | influenza, injectable, quadrivalentDate: 07/07/15Amt.:Route:Site: | | Deltoid, LeftNDC:Lot #: [id number].:Exp. Date: 03/18/16Date on VIS:VIS | | Given: 07/07/15Vaccinator:Vaccine Type: influenza, seasonal, | | injectableDate: 06/27/14Amt.:Route:Site: Deltoid, LeftNDC:Lot #: | | [id number].:Exp. Date: 03/18/15Date on VIS:VIS Given: | | 06/27/14Vaccinator:Vaccine Type: influenza, seasonal, injectableDate: | | 06/14/13Amt.:Route:Site: Deltoid, LeftNDC:Lot #: [id number].:Exp. Date: | | 11/28/13Date on VIS:VIS Given: 06/14/13Vaccinator:Vaccine Type: | | pneumococcal polysaccharide [id number]: 11/06/15Amt.:Route:Site: | | Deltoid, RightNDC:Lot #: [id number].:Exp. Date: 12/13/16Date on VIS:VIS | | Given: 11/06/15Vaccinator:Vaccine Type: pneumococcal conjugate PCV | | 13Date: 04/12/13Amt.:Route:Site: [facility], LeftNDC:Lot #: [id number].: | | Pfizer, IncExp. 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 | | environment - Onset: 11/01/2018Family HistoryReviewed Family | | HistorySocial HistoryReviewed Social HistoryFamily Medicine and Medical | | Wellness Visit/IPPEAble to Care for Self: YLive alone or with others?: | | with othersAre you currently employed?: YNumber of children: 2Alcohol | | intake: NoneCaffeine intake: ModerateIllicit drugs: noneDiet: | | RegularExercise level: NoneHard of hearing or deaf in one or both | | ears?: NLegally blind in one or both eyes?: NSmoking Status: Former | | smokerChewing tobacco: nonePassive smoke exposure?: NSeat belts used | | routinely: YIs the patient ambulatory?: Yes: walks without | | restrictionsSingle or multi-level home/work?: single level homeMarital | | status: MarriedSurgical HistoryReviewed Surgical History* Shoulder | | joint surgery - leftPast Medical HistoryReviewed Past Medical | | HistoryScreeningHPIMedicare Annual Wellness VisitReported by | | patient.Diet and Nutrition: discussed vitamin and supplement use; | | discussed portion control; discussed maintaining calcium balance; | | discussed diet improvementFracture Risk: no history of fractures; no | | recent explained fracture; no sudden unexplained fracturesPhysical | | Activity: discussed weightbearing activities; discussed exercise | | habitsDepression Risk: never feels sad, empty, or tearful; no loss of | | interest in activities; no sleep disturbances or insomnia; no feelings | | of worthlessness or guilt; no thoughts of suicideOrientation: no | | disorientation to time; no disorientation to date; no disorientation to | | placeConcentration and Memory: no decreased concentrating ability; no | | memory lapses or loss; does not forget wordsSpeech/Motor difficulties: | | no speech difficulties; no difficulty expressing formulated concepts; | | no difficulty with fine manipulative tasks; no difficulty | | writing/copying; no slowed reaction time; does not knock things over | | when trying to pick them upHearing: difficulty hearing over background | | noiseVision: 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 He had an eye exam | | in May @ [facility] [place].Activities of Daily Living: able | | to bathe with limited or no assistance; able to contol urination and | | bowels; able to dress with limited or no assistance; able to feed self | | with limited or no assistance; able to get out of chair or bed with | | limited or no assistance; able to groom with limited or no assistance; | | able to toilet with limited or no assistanceInstrumental Activities of | | Daily Living: able to do house work with limited or no assistance; able | | to grocery shop with limited or no assistance; able to manage | | medications with limited or no assistance; able to manage money with | | limited or no assistance; able to prepare meals with limited or no | | assistance; able to use the phone with limited or no assistanceFalls | | Risk Assessment: no frequent falls while walking; no fall in the past | | year; no fall since last visit; no dizziness/vertigoHome Safety: | | reviewed sun protection; no unsafe komal hazzards; no unsafe stairs; | | no unsafe gas appliances; working smoke/CO detectors; use of | | seatbelts; good lighting in the home; does not have hand bars in the | | bathroom/showerNotes:He has a living willROSPatient reports no muscle | | aches, no muscle weakness, no swelling in the extremities, no neck | | pain, and no fractures; Pain on Mankoski scale is 0 on a scale of 1-10. | | He states when he tries to lift his right shoulder it hurts some, but | | doesn't hurt unless he tries to lift it.. He reports no | | incontinence.Assessment / Plan1. Adult health tdcjzpzfkjsJ96.00: | | Encounter for general adult medical examination without abnormal | | findings2. Advance care tbkwsfidY30.89: Other specified counseling* | | ADVANCE DIRECTIVE EDUCATION* ADVANCE DIRECTIVES: CARE INSTRUCTIONS3. | | Screening for erkkhgxrT95.89: Encounter for screening for other | | disorder* ADVANCE CARE PLANNING: CARE INSTRUCTIONS4. Depression | | jdcpyatheS04.89: Encounter for screening for other disorder5. Abdominal | | aortic aneurysm xncftihzgR25.6: Encounter for screening for | | cardiovascular disorders* US, ABDOMINAL AORTA6. Essential | | dxoynixtozbbT30: Essential (primary) hypertension* COMPLETE BLOOD COUNT | | WITH AUTO DIFF* COMPREHENSIVE METABOLIC PANEL7. Mixed | | ferifzetzfauljA18.2: Mixed hyperlipidemia* LIPID PANEL8. Screening for | | malignant neoplasm of gcgxoG38.11: Encounter for screening for | | malignant neoplasm of colon* COLONOSCOPY REFERRAL -Schedule Within: | | provider's discretion9. Increased frequency of zwaqvjrvlM70.0: | | Frequency of micturition* PROSTATIC SPECIFIC ANTIGEN, TOTAL10. Labile | | hypertension due to being in a clinical environment -I15.8: Other | | secondary hypertensionGoalsPatient InstructionsHe is to check his Bp at | | home and bring me the recordings in 10 daysDiscussion NotesMedications | | reviewed. No changes to medications. List of medications given to | | patient. Counseling was provided today re: healthy eating habits and | | regular exercises, alcohol and tobacco use. Goals for better health | | discussed. Immunizations reviewed. Screenings discussed. Discussed | | Advanced Directives. Copy given to patient today. Results of cognitive | | exam, fall screen, incontinence screen, and pain severity discussed | | with patient. All most recent labs reviewed. Discussed recent systolic | | and diastolic blood pressure readings. Questions answered and provided | | patient with a copy of all current screenings and services. Gave him a | | list of all of his immunizations and meds and a copy of all of the | | dates of his screeningsReturn to Office* DANIELLE HERNANDEZ DO for | | Procedure at [facility] on 11/06/2018 at 04:30 | | PMEncounter Sign-OffEncounter signed-off by MAGNO PINA, | | 11/06/2018. | + + + + + + +---+ + | OUTPATIEN | Admitter: | [place] | | | [facility] | | T | Danielle | [facility] | 9 | | r | | | Tom | [facility] | 10:47:00 | | Physician | | | | | AM COMMERCIAL CONSTRUCTION ESTIMATOR | | s Hot | | | | | | | [place] | | | | | | | [place] | + + + + +---+ + | OUTPATIEN | Admitter: | [place] | | | [facility] | | T | Danielle | Family | 9 | | r | | | Tom | Medicine | | | Physician | | | | | PM COMMERCIAL CONSTRUCTION ESTIMATOR | | s Hot | | | | | | | [place] | | | | | | | [place] | + + + + +---+ + | OUTPATIEN | Admitter: | [place] | | | [facility] | | T | Danielle | Family | 8 | | r | | | Tom | Medicine | | | Physician | | | | | PM COMMERCIAL CONSTRUCTION ESTIMATOR | | s Hot | | | | | | | [place] | | | | | | | Sil[place] | + + + + +---+ + | OUTPATIEN | Admitter: | [place] | | | [facility] | | T | Danielle | Family | 8 | | r | | | Tom | Medicine | : | | Physician | | | | | PM COMMERCIAL CONSTRUCTION ESTIMATOR | | s Hot | | | | | | | [place] | | | | | | | [place] | + + + + +---+ + | OUTPATIEN | Admitter: | [place] | | | [facility] | | T | Danielle | Family | 8 | | r | | | Tom | Medicine | : | | Physician | | | | | PM COMMERCIAL CONSTRUCTION ESTIMATOR | | s Hot | | | | | | | [place] | | | | | | | [place] | + + + + +---+ + | OUTPATIEN | Admitter: | [place] | | | [facility] | | T | Danielle | Family | 8 | | r | | | Tom | Medicine | : | | Physician | | | | | PM COMMERCIAL CONSTRUCTION ESTIMATOR | | s Hot | | | | | | | [place] | | | | | | | [place] | + + + + +---+ + | OUTPATIEN | Admitter: | [place] | | | [facility] | | T | Danielle | Family | 8 | | r | | | Tom | Medicine | :08:00 | | Physician | | | | | PM COMMERCIAL CONSTRUCTION ESTIMATOR | | s Hot | | | | | | | [place] | | | | | | | [place] | + + + + +---+ + | OUTPATIEN | Admitter: | [place] | | | [facility] | | T | Danielle | Family | 8 | | r | | | Tom | Medicine | :08:00 | | Physician | | | | | PM COMMERCIAL CONSTRUCTION ESTIMATOR | | s Hot | | | | | | | [place] | | | | | | | [place] | + + + + +---+ + | OUTPATIEN | Admitter: | [place] | | | [facility] | | T | Danielle | Family | 8 | | r | | | Tom | Medicine | 03:07:00 | | Physician | | | | | PM COMMERCIAL CONSTRUCTION ESTIMATOR | | s Hot | | | | | | | [place] | | | | | | | [place] | + + + + +---+ + | OUTPATIEN | Admitter: | [place] | | | [facility] | | T | Danielle | Family | 8 | | r | | | Tom | Medicine | 03:07:00 | | Physician | | | | | PM COMMERCIAL CONSTRUCTION ESTIMATOR | | s Hot | | | | | | | [place] | | | | | | | Sil[place] | + + + + +---+ + | OUTPATIEN | Admitter: | Dick | | | [facility] | | T | Danielle | Family | 8 | | r | | | Tom | Medicine | 03:06:00 | | Physician | | | | | PM COMMERCIAL CONSTRUCTION ESTIMATOR | | s Hot | | | | | | | [place] | | | | | | | Sil[place] | + + + + +---+ + | Outpatien | Attender: | Dick | | | [facility] | | t | DR | Family | 8 | | r | | | DAISY | Medicine | 02:08:00 | | Physician | | | PAYAL | | PM COMMERCIAL CONSTRUCTION ESTIMATOR - | | s Hot | | | NPAdmitte | | | | [place] | | | r: | | 8 | | [place] | | | Danielle | | 03:24:00 | | | | | Tom | | PM COMMERCIAL CONSTRUCTION ESTIMATOR | | | + + + + +---+ + + + | PatientName : KAN COATS (73yo, M) ID# [id number]. Date/Time : | | 09/18/2018 02:00PMDOB : 1945[facility] Dept[facility] | | MedicineProvider : DAISY MOE, CNPInsuranceMed Primary: MEDICARE-[place] | | (MEDICARE)Insurance # : [id number] Secondary: BCBS-[place] - | | FEPInsurance # : [id number]/Group # : [id number]: CMX - | | Member is eligible. detailsChief ComplaintdiarrheaPatient's | | [facility] [place] [facility] [address] [facility] [facility], | | [place] [address], , [facility] [place] ([facility]): [address] [facility] [place] [address], | | , Vitals1 01:50 pmHt:5 ft 8 | | in (172.72 cm)Wt:180.8 lbs (82.01 kg)BMI:27.5BP:146/86 sitting L | | zkiX7Gns:95%Pulse:83 bpmAllergiesReviewed | | AllergiesNKDAMedicationsReviewed MedicationsName: Cipro 500 mg tablet | | Take 1 tablet(s) every 12 hours by oral route for 7 days.Date: 09/18/18 | | prescribedSource: DAISY MOE, CNPName: lisinopril 10 mg tablet | | TAKE 1 TABLET BY MOUTH DAILYDate: 07/03/18 filledSource: | | CaremarkName: Lomotil 2.5 mg-0.025 mg tablet Take 1 tablet(s) twice a | | day by oral route.Date: 09/18/18 prescribedSource: DAISY MOE, | | CNPVaccinesReviewed VaccinesVaccine Type: influenza, injectable, | | quadrivalentDate: 06/15/17mt.:Route:Site: Deltoid, RightND:Lot #: | | [id number].:Exp. Date: 02/15/18Date on VIS:VIS Given: | | 06/15/17Vaccinator:Vaccine Type: influenza, seasonal, injectableDate: | | 07/20/16Amt.:Route:Site:NDC:Lot #:[id number].:Exp. Date:Date on VIS:VIS | | Given:Video Player Mechanic:Vaccine Type: influenza, injectable, quadrivalentDate: | | 07/07/15Amt.:Route:Site: Deltoid, LeftND:Lot #: [id number].:Exp. | | Date: 03/18/16Date on VIS:VIS Given: 07/07/15Vaccinator:Vaccine Type: | | influenza, seasonal, injectableDate: 06/27/14Amt.:Route:Site: Deltoid, | | LeftND:Lot #: [id number].:Exp. Date: 03/18/15Date on VIS:VIS Given: | | 06/27/14Vaccinator:Vaccine Type: influenza, seasonal, injectableDate: | | 06/14/13Amt.:Route:Site: Deltoid, LeftND:Lot #: [id number].:Exp. Date: | | 11/28/13Date on VIS:VIS Given: 06/14/13Vaccinator:Vaccine Type: | | pneumococcal polysaccharide [id number]: 11/06/15Amt.:Route:Site: | | Deltoid, RightNDC:Lot #: [id number].:Exp. Date: 12/13/16Date on VIS:VIS | | Given: 11/06/15Vaccinator:Vaccine Type: pneumococcal conjugate PCV | | 13Date: 04/12/13Amt.:Route:Site: Deltoid, LeftNDC:Lot #: [id number].: | | Pfizer, IncExp. Date: 04/06/14Date on VIS:VIS Given: | | 04/12/13Vaccinator:ProblemsReviewed Problems* Essential hypertension - | | Onset: 03/29/2018Social HistoryReviewed Social HistoryFamily | | MedicineAble to Care for Self: YLive alone or with others?: with | | othersAre you currently employed?: YNumber of children: 2Alcohol | | intake: NoneCaffeine intake: ModerateDiet: RegularExercise level: | | NoneHard of hearing or deaf in one or both ears?: NLegally blind in one | | or both eyes?: NSmoking Status: Former smokerIs the patient | | ambulatory?: Yes: walks without restrictionsSurgical HistoryReviewed | | Surgical History* Shoulder joint surgery - leftHPIDiarrheaReported by | | patient.Quality: frequent; waterySeverity: moderateDuration: Symptoms | | started Tuesday eveningOnset/Timin-3 times a dayContext: no one else | | with similar symptoms; possible food sourceAssociated Symptoms: no | | abdominal pain; no fever; no blood in stoolthe only food he ate | | differently was deer summer sausage several hrs prior to onset.ROSROS | | as noted in the HPIPhysical ExamPatient is a 73-year-old | | male.Constitutional: General Appearance: healthy-appearing, | | well-nourished, and well-developed. Level of Distress: NAD. Ambulation: | | ambulating normally.Psychiatric: Insight: good judgement. Mental | | Status: normal mood and affect and active and alert. Orientation: to | | time, place, and person.Eyes: Lids and Conjunctivae: no discharge or | | pallor and non-injected. Sclerae: non-icteric.Lungs: Respiratory | | effort: no dyspnea.Cardiovascular: Heart Auscultation: RRR.Abdomen: | | Bowel Sounds: increased. Inspection and Palpation: no tenderness, | | guarding, masses, or rebound tenderness and non-distended; abdomen firm | | - states normal size for him..Musculoskeletal:: Motor Strength and | | Tone: normal. Joints, Bones, and Muscles: normal movement of all | | extremities.Neurologic: Gait and Station: normal gait and station. | | Cranial Nerves: grossly intact.Skin: Inspection and palpation: no rash, | | lesions, or jaundice and good turgor.Assessment / Plan1. Diarrhea | | -Assessment:Condition Status: uncontrolled - stableGoals:Follow-up:If | | symptoms worsen or do not yjjyiphX11.7: Diarrhea, unspecified* Cipro | | 500 mg tablet -Take 1 tablet(s) every 12 hours by oral route for 7 | | days. Qty: 14 tablet(s) Refills: 0 Pharmacy: [facility] - | | DICK* Lomotil 2.5 mg-0.025 mg tablet -Take 1 tablet(s) twice a day | | by oral route. Qty: 10 tablet(s) Refills: 0 Pharmacy: [facility] - | | DICK2. Essential hypertension -Assessment:Condition Status: | | controlledGoals: <130/80Follow-up:I10: Essential (primary) | | hypertension3. Body mass index 25-29 - hjrwttyhgvW82.27: Body mass | | index (BMI) 27.0-27.9, adultGoalsPatient InstructionsLight diet. | | Increase fluid intake - use gatorade or other electrolyte replacement | | fluids. If abdominal pain, fever, nausea or vomiting please go to ED. | | Provided him with stool sample containers to bring back to clinic if | | diarrhea not resolved over next 24 hours.Return to OfficeNone | | recorded.Encounter Sign-OffEncounter signed-off by DAISY MOE CNP, | | 09/18/2018. | + + + + + + +---+ + | OUTPATIEN | Admitter: | [place] | | | [facility] | | T | Danielle | | 8 | | r | | | Tom | Medicine | 02:48:00 | | Physician | | | | | PM COMMERCIAL CONSTRUCTION ESTIMATOR | | s Hot | | | | | | | [place] | | | | | | | [place] | + + + + +---+ + | OUTPATIEN | Admitter: | [place] | | | [facility] | | T | Danielle | | 8 | | r | | | Tom | Medicine | 12:16:00 | | Physician | | | | | PM CDT | | s Hot | | | | | | | [place] | | | | | | | Sil[place] | + + + + +---+ + | OUTPATIEN | Admitter: | [place] | | | [facility] | | T | Danielle Aguilar Family | 8 | | r | | | Tom | Medicine | 11:49:00 | | Physician | | | | | AM CDT | | s Hot | | | | | | | [place] | | | | | | | [place] | + + + + +---+ + | Outpatien | Attender: | [place] | | | [facility] | | t | Danielle | Family | 6 | | r | | | Tom | Medicine | 03:22:11 | | [place] | | | | | PM COMMERCIAL CONSTRUCTION ESTIMATOR - | | Family | | | | | | | Medicine | | | | | 6 | | NOT | | | | | 04:18:04 | | ACTIVE | | | | | PM COMMERCIAL CONSTRUCTION ESTIMATOR | | | + + + + +---+ + Medications +----+----+----+----+----+----+----+----+----+----+----+----+----+ | Me | Br | St | Pr | Do | Ro | Ad | Ph | St | In | Re | De | Da | | di | an | ar | od | se | ut | mi | ar | at | di | ac | sc | ta | | ca | d | t | uc | | e | ni | ma | us | ca | ti | ri | | | ti | Na | Da | t | | | st | cy | | ti | on | pt | So | | on | me | te | Fo | | | ra | | | on | | io | ur | | | | | rm | | | ti | In | | s | | n | ce | | | | | | | | ve | st | | | | | (s | | | | | | | | | ru | | | | | ) | | | | | | | | In | ct | | | | | | | | | | | | | st | io | | | | | | | | | | | | | ru | ns | | | | | | | | | | | | | ct | | | | | | | | | | | | | | io | | | | | | | | | | | | | | ns | | | | | | | +----+----+----+----+----+----+----+----+----+----+----+----+----+ | <n | | | | | | | | | | | | He | | on | | | | | | | | | | | | al | | e> | | | | | | | | | | | | th | | | | | | | | | | | | | | st | | | | | | | | | | | | | | ar | | | | | | | | | | | | | | | | | | | | | | | | | | | | Gl | | | | | | | | | | | | | | en | | | | | | | | | | | | | | wo | | | | | | | | | | | | | | od | | | | | | | | | | | | | | | | | | | | | | | | | | | | Fa | | | | | | | | | | | | | | mi | | | | | | | | | | | | | | ly | | | | | | | | | | | | | | | | | | | | | | | | | | | | Me | | | | | | | | | | | | | | di | | | | | | | | | | | | | | ci | | | | | | | | | | | | | | ne | | | | | | | | | | | | | | | | | | | | | | | | | | | | NO | | | | | | | | | | | | | | T | | | | | | | | | | | | | | AC | | | | | | | | | | | | | | TI | | | | | | | | | | | | | | VE | +----+----+----+----+----+----+----+----+----+----+----+----+----+ | Li | | | | | | | | | | | | He | | si | | | | | | | | | | | | al | | no | | | | | | | | | | | | th | | pr | | | | | | | | | | | | st | | il | | | | | | | | | | | | ar | | | | | | | | | | | | | | | | | | | | | | | | | | | | Gl | | | | | | | | | | | | | | en | | | | | | | | | | | | | | wo | | | | | | | | | | | | | | od | | | | | | | | | | | | | | | | | | | | | | | | | | | | Fa | | | | | | | | | | | | | | mi | | | | | | | | | | | | | | ly | | | | | | | | | | | | | | | | | | | | | | | | | | | | Me | | | | | | | | | | | | | | di | | | | | | | | | | | | | | ci | | | | | | | | | | | | | | ne | | | | | | | | | | | | | | | | | | | | | | | | | | | | NO | | | | | | | | | | | | | | T | | | | | | | | | | | | | | AC | | | | | | | | | | | | | | TI | | | | | | | | | | | | | | VE | +----+----+----+----+----+----+----+----+----+----+----+----+----+ Insurance Providers +---------+---------+---------+---------+---------+---------+---------+ | Payer | Policy | Policy | Covered | Covered | Policy | Plan | | name | type / | ID | republican | | Underwood | Informa | | | Coverag | | ID | republican's | | tion | | | e type | | | | | | | | | | | relatio | | | | | | | | nship | | | | | | | | to | | | | | | | | underwood | | | +---------+---------+---------+---------+---------+---------+---------+ | MEDICAR | | [id number] | | Self | | [id number] | | E B-AR: | | TX56 | | | | TX56 | | | | | | | | | | NOVITAS | | | | | | | | | | | | | | | | SOLUTIO | | | | | | | | NS | | | | | | | | MEDICAR | | | | | | | | E | | | | | | | +---------+---------+---------+---------+---------+---------+---------+ | BCBS-AR | | [id number] | | Self | | [id number] | | : | | 48 | | | | 48 | | FEDERAL | | | | | | | | | | | | | | | | EMPLOYE | | | | | | | | E | | | | | | | | PROGRAM | | | | | | | +---------+---------+---------+---------+---------+---------+---------+ | PAYMENT | | | | | | | | PLAN | | | | | | | +---------+---------+---------+---------+---------+---------+---------+ | BCBS-AR | | [id number] | | Self | | [id number] | | : | | 48 | | | | 48 | | FEDERAL | | | | | | | | | | | | | | | | EMPLOYE | | | | | | | | E | | | | | | | | PROGRAM | | | | | | | +---------+---------+---------+---------+---------+---------+---------+ | MEDICAR | | [id number] | | Self | | [id number] | | E B-AR: | | TX56 | | | | TX56 | | | | | | | | | | NOVITAS | | | | | | | | | | | | | | | | SOLALEXISIO | | | | | | | | NS | | | | | | | | MEDICAR | | | | | | | | E | | | | | | | +---------+---------+---------+---------+---------+---------+---------+ | BLUE | | [id number] | | 01 | | [id number] | | CROSS | | 4802 | | | | 4802 | | AR | | | | | | | | SECONDA | | | | | | | | RY | | | | | | | +---------+---------+---------+---------+---------+---------+---------+ | MEDICAR | | [id number] | | 01 | | [id number] | | E A B | | TX56 | | | | TX56 | +---------+---------+---------+---------+---------+---------+---------+ | BLUE | | [id number] | | 01 | | [id number] | | CROSS | | 48 | | | | 48 | | FEP | | | | | | | +---------+---------+---------+---------+---------+---------+---------+ | BCBS-AR | | [id number] | | Self | | [id number] | | : | | 48 | | | | 48 | | FEDERAL | | | | | | | | | | | | | | | | EMPLOYE | | | | | | | | E | | | | | | | | PROGRAM | | | | | | | +---------+---------+---------+---------+---------+---------+---------+ | NOVITAS | | [id number] | | Self | | [id number] | | | | TX56 | | | | TX56 | | SOLUTIO | | | | | | | | NS - | | | | | | | | MEDICAR | | | | | | | | E - | | | | | | | | PART A | | | | | | | | - AR | | | | | | | | (MEDICA | | | | | | | | RE) | | | | | | | +---------+---------+---------+---------+---------+---------+---------+ | BCBS-AR | | [id number] | | Self | | [id number] | | : | | 48 | | | | 48 | | FEDERAL | | | | | | | | | | | | | | | | EMPLOYE | | | | | | | | E | | | | | | | | PROGRAM | | | | | | | +---------+---------+---------+---------+---------+---------+---------+ | MEDICAR | | [id number] | | Self | | [id number] | | E B-AR: | | TX56 | | | | TX56 | | | | | | | | | | NOVITAS | | | | | | | | | | | | | | | | SOLUTIO | | | | | | | | NS | | | | | | | | MEDICAR | | | | | | | | E | | | | | | | +---------+---------+---------+---------+---------+---------+---------+ | MEDICAR | | [id number] | | Self | | [id number] | | E B-AR: | | TX56 | | | | TX56 | | | | | | | | | | NOVITAS | | | | | | | | | | | | | | | | SOLUTIO | | | | | | | | NS | | | | | | | | MEDICAR | | | | | | | | E | | | | | | | +---------+---------+---------+---------+---------+---------+---------+ | MEDICAR | | [id number] | | Self | | [id number] | | E B-AR: | | 61A | | | | 61A | | | | | | | | | | NOVITAS | | | | | | | | | | | | | | | | SOLUTIO | | | | | | | | NS | | | | | | | | MEDICAR | | | | | | | | E | | | | | | | +---------+---------+---------+---------+---------+---------+---------+ | Blue | C1 | [id number] | | Self | | [id number] | | Cross | | 48 | | | | 48 | | Blue | | | | | | | | Shield | | | | | | | | of | | | | | | | | [place] | | | | | | | | s | | | | | | | +---------+---------+---------+---------+---------+---------+---------+ | Toma | MB | [id number] | | Self | | [id number] | | s | | 61A | | | | 61A | | Medicar | | | | | | | | e | | | | | | | +---------+---------+---------+---------+---------+---------+---------+ Problems, Conditions, and Diagnoses + + + + + + + | Code | Display | Descripti | Problem | Effective | Data | | | Name | on | Type | Dates | Source(s) | + + + + + + + | [id number] | Labile | Labile | | | [facility] | | | hypertens | hypertens | | 9 | r | | | ion due | ion due | | 11:09:32 | Physician | | | to being | to being | | AM COMMERCIAL CONSTRUCTION ESTIMATOR | s Hot | | | in a | in a | | | [place] | | | clinical | clinical | | | [place] | | | environme | environme | | | | | | nt | nt | | | | + + + + + + + | [id number] | Essential | Essential | | | [facility] | | | | | | 8 | r | | | hypertens | hypertens | | 11:49:31 | Physician | | | ion | ion | | AM CDT | s Hot | | | | | | | [place] | | | | | | | Lexa | + + + + + + + | L57.0 | [place] | [place] | Diagnosis | | [facility] | | | | | | 6 | r | | | | | | 05:40:38 | Dick | | | | | | PM COMMERCIAL CONSTRUCTION ESTIMATOR | Family | | | | | | | Medicine | | | | | | | NOT | | | | | | | ACTIVE | + + + + + + + | Z12.5 | Screening | Screening | Diagnosis | | [facility] | | | for | for | | 6 | r | | | prostate | prostate | | 04:11:11 | Dick | | | cancer | cancer | | PM COMMERCIAL CONSTRUCTION ESTIMATOR | Family | | | | | | | Medicine | | | | | | | NOT | | | | | | | ACTIVE | + + + + + + + | Z68.27 | Body Mass | Body Mass | Diagnosis | | [facility] | | | Index | Index | | 6 | r | | | 27.0-27.9 | 27.0-27.9 | | 03:33:22 | Dick | | | , adult | , adult | | PM COMMERCIAL CONSTRUCTION ESTIMATOR | Family | | | | | | | Medicine | | | | | | | NOT | | | | | | | ACTIVE | + + + + + + + | D48.5 | Atypical | Atypical | Diagnosis | | [facility] | | | mole | mole | | 6 | r | | | | | | 03:28:04 | Dick | | | | | | PM COMMERCIAL CONSTRUCTION ESTIMATOR | Family | | | | | | | Medicine | | | | | | | NOT | | | | | | | ACTIVE | + + + + + + + | I10 | Essential | Essential | Diagnosis | | [facility] | | | | | | 4 | r | | | hypertens | hypertens | | 09:40:23 | Dick | | | ion | ion | | AM CDT | Family | | | | | | | Medicine | | | | | | | NOT | | | | | | | ACTIVE | + + + + + + + | Edema,_un | Edema, | Edema, | Diagnosis | | [facility] | | specified | unspecifi | unspecifi | | | r | | | ed | ed | | | Physician | | | | | | | s Hot | | | | | | | [place] | | | | | | | Silvia | + + + + + + + | no_curren | no | no | Diagnosis | | [facility] | | t_diagnos | current | current | | | [facility] | | is | diagnosis | diagnosis | | | [facility] | | | | | | | Center | | | | | | | Clinics | + + + + + + + | Encounter | Encounter | Encounter | Diagnosis | | [facility] | | _for_immu | for | for | | | r | | nization | immunizat | immunizat | | | Physician | | | ion | ion | | | s Hot | | | | | | | [place] | | | | | | | [place]a | + + + + + + + | Pain_in_r | Pain in | Pain in | Diagnosis | | [facility] | | ight_leg | right leg | right leg | | | r | | | | | | | Physician | | | | | | | s Hot | | | | | | | [place] | | | | | | | Lexa | + + + + + + + | Dizziness | Dizziness | Dizziness | Diagnosis | | [facility] | | _and_gidd | and | and | | | r | | iness | giddiness | giddiness | | | Physician | | | | | | | s [facility] | | | | | | | [place] | | | | | | | Lexa | + + + + + + + | HEADACHE | HEADACHE | HEADACHE | Diagnosis | | [facility] | | [facility] | | | | | | | ([facility] | | | | | | | Hospital | + + + + + + + | Actinic_k | Actinic | Actinic | Diagnosis | | [facility] | | eratosis | keratosis | keratosis | | | r | | | | | | | Physician | | | | | | | s Hot | | | | | | | [place] | | | | | | | Lexa | + + + + + + + | Encounter | Encounter | Encounter | Diagnosis | | [facility] | | _for[facility]scre | for | for | | [facility] | | ening_for | screening | screening | | | Medical | | _malignan | for | for | | | Center | | t_neoplas | malignant | malignant | | | Clinics | | m_of_colo | neoplasm | neoplasm | | | | | n | of colon | of colon | | | | + + + + + + + | Encounter | Encounter | Encounter | Diagnosis | | [facility] | | _for_scre | for | for | | | r | | ening_for | screening | screening | | | Physician | | _malignan | for | for | | | s Hot | | t_neoplas | malignant | malignant | | | [place] | | m_of_colo | neoplasm | neoplasm | | | [place] | | n | of colon | of colon | | | | + + + + + + + | Frequency | Frequency | Frequency | Diagnosis | | [facility] | | _of_mictu | of | of | | | r | | rition | micturiti | micturiti | | | Physician | | | on | on | | | s Hot | | | | | | | [place] | | | | | | | [place] | + + + + + + + | Diarrhea, | Diarrhea, | Diarrhea, | Diagnosis | | [facility] | | _unspecif | | | | | r | | ied | unspecifi | unspecifi | | | Physician | | | ed | ed | | | s Hot | | | | | | | [place] | | | | | | | [place] | + + + + + + + | no_curren | no | no | Diagnosis | | [facility] | | t_diagnos | current | current | | | r | | is | diagnosis | diagnosis | | | Physician | | | | | | | s Hot | | | | | | | [place] | | | | | | | [place] | + + + + + + + Surgeries/Procedures + + + + + + | Procedure | Description | Date | Indications | Data | | | | | | Source(s) | + + + + + + | Office/outp | | 08/27/2016 | | [facility] | | atient | | 05:42:41 PM | | [place] | | visit; | | COMMERCIAL CONSTRUCTION ESTIMATOR | | Family | | established | | | | Medicine | | patient, | | | | NOT ACTIVE | | level 4 | | | | | + + + + + + | Shaving of | | 08/27/2016 | | [facility] | | epidermal | | 05:42:00 PM | | [place] | | or dermal | | COMMERCIAL CONSTRUCTION ESTIMATOR | | Family | | lesion, | | | | Medicine | | single | | | | NOT ACTIVE | | lesion, | | | | | | scalp, | | | | | | neck, | | | | | | hands, | | | | | | feet, | | | | | | genitalia; | | | | | | lesion d | | | | | + + + + + + | Destruction | | 08/27/2016 | | [facility] | | | | 05:41:02 PM | | [place] | | premalignan | | COMMERCIAL CONSTRUCTION ESTIMATOR | | Family | | t lesions | | | | Medicine | | (eg, | | | | NOT ACTIVE | | actinic | | | | | | keratoses), | | | | | | 15 or more | | | | | | lesions | | | | | + + + + + + | Destruction | | 08/27/2016 | | [facility] | | (eg, laser | | 05:41:02 PM | | [place] | | surgery, | | COMMERCIAL CONSTRUCTION ESTIMATOR | | Family | | electrosurg | | | | Medicine | | ashely, | | | | NOT ACTIVE | | cryosurgery | | | | | | , | | | | | | chemosurger | | | | | | y, surgical | | | | | | | | | | | | curettement | | | | | | ), pr | | | | | + + + + + + | Level IV | | 08/27/2016 | | [facility] | | surgical | | 05:40:26 PM | | [place] | | pathology: | | COMMERCIAL CONSTRUCTION ESTIMATOR | | Family | | skin, other | | | | Medicine | | than | | | | NOT ACTIVE | | cyst/tag/de | | | | | | bridement/p | | | | | | lastic | | | | | | repair | | | | | + + + + + + | Biopsy, | | 08/27/2016 | | [facility] | | skin, | | 04:30:59 PM | | [place] | | subcut; | | COMMERCIAL CONSTRUCTION ESTIMATOR | | Family | | single | | | | Medicine | | lesion | | | | NOT ACTIVE | + + + + + + | PSA | | 08/27/2016 | | [facility] | | | | 04:11:42 PM | | [place] | | | | COMMERCIAL CONSTRUCTION ESTIMATOR | | Family | | | | | | Medicine | | | | | | NOT ACTIVE | + + + + + + | Complete | | 08/27/2016 | | [facility] | | blood count | | 04:11:27 PM | | [place] | | (CBC), | | COMMERCIAL CONSTRUCTION ESTIMATOR | | Family | | automated | | | | Medicine | | (Hgb, Hct, | | | | NOT ACTIVE | | RBC, WBC, | | | | | | platelets) | | | | | | and | | | | | | automated | | | | | | differentia | | | | | | l WBC | | | | | + + + + + + | Lipid panel | | 08/27/2016 | | [facility] | | (total | | 04:11:27 PM | | [place] | | cholesterol | | COMMERCIAL CONSTRUCTION ESTIMATOR | | Family | | , HDL, | | | | Medicine | | triglycerid | | | | NOT ACTIVE | | es) | | | | | + + + + + + | Collection | | 08/27/2016 | | [facility] | | of venous | | 04:11:27 PM | | [place] | | blood by | | COMMERCIAL CONSTRUCTION ESTIMATOR | | Family | | venipunctur | | | | Medicine | | e | | | | NOT ACTIVE | + + + + + + | Comprehensi | | 08/27/2016 | | [facility] | | ve | | 04:11:27 PM | | [place] | | metabolic | | COMMERCIAL CONSTRUCTION ESTIMATOR | | Family | | panel | | | | Medicine | | (Albumin, | | | | NOT ACTIVE | | Bilirubin, | | | | | | Ca, CO2, | | | | | | Cl, | | | | | | Creatinine, | | | | | | Glu, | | | | | | alkaline | | | | | | phosphatas | | | | | + + + + + + Results + + + + | ID | Date | Data Source | + + + + | [id number] | 02/23/2019 10:25:00 | [facility] | | [id number] | AM CDT | [place] | + + + + +-------+-------+---------+---------+---------+---------+---------+ | Name | Value | Range | Interpr | Descrip | Data | Support | | | | | etation | tion | Source( | ing | | | | | Code | | s) | Documen | | | | | | | | t(s) | +-------+-------+---------+---------+---------+---------+---------+ | URIC | 5.2 | 3.5-8.5 | Normal | | Health[facility] | | | ACID | mg/dL | | | | tar | | | | | | | | Physici | | | | | | | | ans Hot | | | | | | | | | | | | | | | | [place] | | | | | | | | [place] | | +-------+-------+---------+---------+---------+---------+---------+ + + + + | ID | Date | Data Source | + + + + | [id number] | 02/23/2019 10:25:00 | [facility] | | [id number] | AM CDT | [place] | + + + + +-------+-------+---------+---------+---------+---------+---------+ | Name | Value | Range | Interpr | Descrip | Data | Support | | | | | etation | tion | Source( | ing | | | | | Code | | s) | Documen | | | | | | | | t(s) | +-------+-------+---------+---------+---------+---------+---------+ | URIC | 5.2 | 3.5-8.5 | Normal | | Health[facility] | | | ACID | mg/dL | | | | tar | | | | | | | | Physici | | | | | | | | ans Hot | | | | | | | | | | | | | | | | [place] | | | | | | | | [place] | | +-------+-------+---------+---------+---------+---------+---------+ + + + + | ID | Date | Data Source | + + + + | [id number] | 01/25/2019 10:18:00 | [facility] | | [id number] | AM CDT | [place] | + + + + +--------+-------+-------+---------+---------+---------+---------+ | Name | Value | Range | Interpr | Descrip | Data | Support | | | | | etation | tion | Source( | ing | | | | | Code | | s) | Documen | | | | | | | | t(s) | +--------+-------+-------+---------+---------+---------+---------+ | Result | | | | | Healths | | | | | | | | tar | | | | | | | | Physici | | | | | | | | ans Hot | | | | | | | | | | | | | | | | [place] | | | | | | | | [place] | | +--------+-------+-------+---------+---------+---------+---------+ + + + + | ID | Date | Data Source | + + + + | [id number] | 11/06/2018 03:32:00 | [facility] | | [id number] | PM COMMERCIAL CONSTRUCTION ESTIMATOR | [place] | + + + + +---------+-------+-------+---------+---------+---------+---------+ | Name | Value | Range | Interpr | Descrip | Data | Support | | | | | etation | tion | Source( | ing | | | | | Code | | s) | Documen | | | | | | | | t(s) | +---------+-------+-------+---------+---------+---------+---------+ | HISTOPA | See | | | | Healths | | | THOLOGY | Note | | | | tar | | | | | | | | Physici | | | | | | | | ans Hot | | | | | | | | | | | | | | | | [place] | | | | | | | | [place] | | +---------+-------+-------+---------+---------+---------+---------+ + + | SURGICAL PATHOLOGY REPORT ACCESSION NUMBER: [id number] PATHOLOGIC | | DIAGNOSIS Specimen 1: RIGHT EAR: Seborrheic keratosis, inflamed and | | crusted. GROSS DESCRIPTION Specimen 1: RIGHT EAR: Received in | | fixative as KAN COATS labeled RIGHT EAR is a cobb-brown, raised, | | wrinkled shave biopsy of skin which measures 0.8 x 0.4 x 0.2 cm. | | Specimen is submitted in toto: 1A - 3. NOTE: This is friable. Trans | | init: CS 11/07/2018:smj 11/07/2018 10:52 AM Pathologist: Tashi Cheema | | Padma Butler (Electronic Signature) Date Authorised: 11/08/2018 CPT: | | 43913 ICD-10-L82.0 Reporting Location [facility] [id number] [address] | [address], [address] [place] [address] | + + + + + + | ID | Date | Data Source | + + + + | [id number] | 11/06/2018 03:32:00 | [facility] | | [id number] | PM COMMERCIAL CONSTRUCTION ESTIMATOR | [place] | + + + + +---------+-------+-------+---------+---------+---------+---------+ | Name | Value | Range | Interpr | Descrip | Data | Support | | | | | etation | tion | Source( | ing | | | | | Code | | s) | Documen | | | | | | | | t(s) | +---------+-------+-------+---------+---------+---------+---------+ | HISTOPA | See | | | | Healths | | | THOLOGY | Note | | | | tar | | | | | | | | Physici | | | | | | | | ans Hot | | | | | | | | | | | | | | | | [place] | | | | | | | | [place] | | +---------+-------+-------+---------+---------+---------+---------+ + + | SURGICAL PATHOLOGY REPORT ACCESSION NUMBER: [id number] PATHOLOGIC | | DIAGNOSIS Specimen 1: RIGHT EAR: Seborrheic keratosis, inflamed and | | crusted. GROSS DESCRIPTION Specimen 1: RIGHT EAR: Received in | | fixative as KAN COATS labeled RIGHT EAR is a cobb-brown, raised, | | wrinkled shave biopsy of skin which measures 0.8 x 0.4 x 0.2 cm. | | Specimen is submitted in toto: 1A - 3. NOTE: This is friable. Trans | | init: CARI 11/07/2018:smj 11/07/2018 10:52 AM Pathologist: Tashi Cheema | | Padma Butler (Electronic Signature) Date Authorised: 11/08/2018 CPT: | | 30332 ICD-10-L82.0 Reporting Location [facility] [id number] [address] | | [address], [address] [place] [address] | + + + + + + | ID | Date | Data Source | + + + + | [id number] | 11/06/2018 03:09:00 | [facility] | | [id number] | PM COMMERCIAL CONSTRUCTION ESTIMATOR | [place] | + + + + +---------+---------+---------+---------+---------+---------+---------+ | Name | Value | Range | Interpr | Descrip | Data | Support | | | | | etation | tion | Source( | ing | | | | | Code | | s) | Documen | | | | | | | | t(s) | +---------+---------+---------+---------+---------+---------+---------+ | Hemoglo | Negativ | Negativ | Normal | | Health[facility] | | | bin.gas | e | e | | | tar | | | trointe | | | | | Physici | | | stinal | | | | | ans Hot | | | [Mass/m | | | | | | | | ass] in | | | | | [place] | | | Stool | | | | | [place] | | +---------+---------+---------+---------+---------+---------+---------+ + + + + | ID | Date | Data Source | + + + + | [id number] | 11/06/2018 03:09:00 | [facility] | | [id number] | PM COMMERCIAL CONSTRUCTION ESTIMATOR | [place] | + + + + +---------+---------+---------+---------+---------+---------+---------+ | Name | Value | Range | Interpr | Descrip | Data | Support | | | | | etation | tion | Source( | ing | | | | | Code | | s) | Documen | | | | | | | | t(s) | +---------+---------+---------+---------+---------+---------+---------+ | Hemoglo | Negativ | Negativ | Normal | | Health[facility] | | | bin.gas | e | e | | | tar | | | trointe | | | | | Physici | | | stinal | | | | | ans Hot | | | [Mass/m | | | | | | | | ass] in | | | | | [place] | | | Stool | | | | | [place] | | +---------+---------+---------+---------+---------+---------+---------+ + + + + | ID | Date | Data Source | + + + + | [id number] | 11/01/2018 10:03:00 | [facility] | | [id number] | AM COMMERCIAL CONSTRUCTION ESTIMATOR | [place] | + + + + +---------+---------+---------+---------+---------+---------+---------+ | Name | Value | Range | Interpr | Descrip | Data | Support | | | | | etation | tion | Source( | ing | | | | | Code | | s) | Documen | | | | | | | | t(s) | +---------+---------+---------+---------+---------+---------+---------+ | GLUCOSE | 141 | 74-106 | High | | Healths | | | | mg/dL | | | | tar | | | | | | | | Physici | | | | | | | | ans Hot | | | | | | | | | | | | | | | | [place] | | | | | | | | [place] | | +---------+---------+---------+---------+---------+---------+---------+ | BUN | 10 | 7-20 | Normal | | Healths | | | | mg/dL | | | | tar | | | | | | | | Physici | | | | | | | | ans Hot | | | | | | | | | | | | | | | | [place] | | | | | | | | [place] | | +---------+---------+---------+---------+---------+---------+---------+ | CREATIN | 0.72 | 0.50-1. | Normal | | Healths | | | INE | mg/dL | 30 | | | tar | | | | | | | | Physici | | | | | | | | ans Hot | | | | | | | | | | | | | | | | [place] | | | | | | | | [place] | | +---------+---------+---------+---------+---------+---------+---------+ | EGFR | 129.34 | >59.00 | Normal | | Healths | | | | mL/min/ | | | | tar | | | | 1.73m2 | | | | Physici | | | CODY | | | | | ans Hot | | | N | | | | | | | | | | | | | [place] | | | | | | | | [place] | | +---------+---------+---------+---------+---------+---------+---------+ + + | Using the modified MDRD study equations, GFR calculations are not valid | | inpatients less than 18 years of age. | + + +---------+---------+--------+--------+---+---------+---+ | EGFR | 106.71 | >59.00 | Normal | | Healths | | | NON-AFR | mL/min/ | | | | tar | | | ICAN | 1.73m2 | | | | Physici | | | CODY | | | | | ans Hot | | | N | | | | | | | | | | | | | [place] | | | | | | | | [place] | | +---------+---------+--------+--------+---+---------+---+ + + | Using the modified MDRD study equations, GFR calculations are not valid | | inpatients less than 18 years of age. | + + +---------+--------+---------+--------+---+---------+---+ | BUN/CRE | 13.89 | 6.00-22 | Normal | | Healths | | | AT | Ratio | .00 | | | tar | | | RATIO | | | | | Physici | | | | | | | | ans Hot | | | | | | | | | | | | | | | | [place] | | | | | | | | [place] | | +---------+--------+---------+--------+---+---------+---+ | BILIRUB | 0.7 | 0.2-1.3 | Normal | | Healths | | | IN, | mg/dL | | | | tar | | | TOTAL | | | | | Physici | | | | | | | | ans Hot | | | | | | | | | | | | | | | | [place] | | | | | | | | [place] | | +---------+--------+---------+--------+---+---------+---+ | AST | 22 U/L | 14-59 | Normal | | Healths | | | (SGOT) | | | | | tar | | | | | | | | Physici | | | | | | | | ans Hot | | | | | | | | | | | | | | | | [place] | | | | | | | | [place] | | +---------+--------+---------+--------+---+---------+---+ | ALT | 16 U/L | 0-50 | Normal | | Healths | | | (SGPT) | | | | | tar | | | | | | | | Physici | | | | | | | | ans Hot | | | | | | | | | | | | | | | | [place] | | | | | | | | [place] | | +---------+--------+---------+--------+---+---------+---+ | ALKALIN | 98 U/L | 38-126 | Normal | | Healths | | | E | | | | | tar | | | PHOSPHA | | | | | Physici | | | TASE | | | | | ans Hot | | | | | | | | | | | | | | | | [place] | | | | | | | | [place] | | +---------+--------+---------+--------+---+---------+---+ | CALCIUM | 9.5 | 8.4-10. | Normal | | Healths | | | | mg/mL | 2 | | | tar | | | | | | | | Physici | | | | | | | | ans Hot | | | | | | | | | | | | | | | | [place] | | | | | | | | [place] | | +---------+--------+---------+--------+---+---------+---+ | SODIUM | 139 | 137-145 | Normal | | Healths | | | | mmol/L | | | | tar | | | | | | | | Physici | | | | | | | | ans Hot | | | | | | | | | | | | | | | | [place] | | | | | | | | [place] | | +---------+--------+---------+--------+---+---------+---+ | POTASSI | 4.4 | 3.5-5.1 | Normal | | Healths | | | UM | mmol/L | | | | tar | | | | | | | | Physici | | | | | | | | ans Hot | | | | | | | | | | | | | | | | [place] | | | | | | | | [place] | | +---------+--------+---------+--------+---+---------+---+ | CHLORID | 104 | 98-107 | Normal | | Healths | | | E | mmol/L | | | | tar | | | | | | | | Physici | | | | | | | | ans Hot | | | | | | | | | | | | | | | | [place] | | | | | | | | [place] | | +---------+--------+---------+--------+---+---------+---+ | CO2 | 27 | 22-30 | Normal | | Healths | | | | mmol/L | | | | tar | | | | | | | | Physici | | | | | | | | ans Hot | | | | | | | | | | | | | | | | [place] | | | | | | | | [place] | | +---------+--------+---------+--------+---+---------+---+ | ANION | 12 | 7-16 | Normal | | Healths | | | GAP | mmol/L | | | | tar | | | | | | | | Physici | | | | | | | | ans Hot | | | | | | | | | | | | | | | | [place] | | | | | | | | [place] | | +---------+--------+---------+--------+---+---------+---+ | TOTAL | 8.1 | 6.3-8.2 | Normal | | Healths | | | PROTEIN | g/dL | | | | tar | | | | | | | | Physici | | | | | | | | ans Hot | | | | | | | | | | | | | | | | [place] | | | | | | | | [place] | | +---------+--------+---------+--------+---+---------+---+ | ALBUMIN | 4.5 | 3.5-5.0 | Normal | | Healths | | | | g/dL | | | | tar | | | | | | | | Physici | | | | | | | | ans Hot | | | | | | | | | | | | | | | | [place] | | | | | | | | [place] | | +---------+--------+---------+--------+---+---------+---+ | GLOBULI | 3.60 | | | | Healths | | | N | | | | | tar | | | | | | | | Physici | | | | | | | | ans Hot | | | | | | | | | | | | | | | | [place] | | | | | | | | [place] | | +---------+--------+---------+--------+---+---------+---+ | ALBUMIN | 1.3 | | | | Healths | | | /GLOBUL | Ratio | | | | tar | | | IN | | | | | Physici | | | | | | | | ans Hot | | | | | | | | | | | | | | | | [place] | | | | | | | | [place] | | +---------+--------+---------+--------+---+---------+---+ + + + + | ID | Date | Data Source | + + + + | [id number] | 11/01/2018 10:03:00 | [facility] | | [id number] | AM COMMERCIAL CONSTRUCTION ESTIMATOR | [place] | + + + + +---------+---------+---------+---------+---------+---------+---------+ | Name | Value | Range | Interpr | Descrip | Data | Support | | | | | etation | tion | Source( | ing | | | | | Code | | s) | Documen | | | | | | | | t(s) | +---------+---------+---------+---------+---------+---------+---------+ | WHITE | 9.4 | 4.0-11. | Normal | | Healths | | | BLOOD | K/uL | 0 | | | tar | | | CELL | | | | | Physici | | | | | | | | ans Hot | | | | | | | | | | | | | | | | [place] | | | | | | | | [place] | | +---------+---------+---------+---------+---------+---------+---------+ | RED | 5.07 | 4.50-6. | Normal | | Healths | | | BLOOD | M/uL | 00 | | | tar | | | CELL | | | | | Physici | | | | | | | | ans Hot | | | | | | | | | | | | | | | | [place] | | | | | | | | [place] | | +---------+---------+---------+---------+---------+---------+---------+ | HEMOGLO | 15.3 | 13.5-17 | Normal | | Healths | | | BIN | g/dL | .5 | | | tar | | | | | | | | Physici | | | | | | | | ans Hot | | | | | | | | | | | | | | | | [place] | | | | | | | | [place] | | +---------+---------+---------+---------+---------+---------+---------+ | HEMATOC | 45 % | 41-52 | Normal | | Healths | | | RIT | | | | | tar | | | | | | | | Physici | | | | | | | | ans Hot | | | | | | | | | | | | | | | | [place] | | | | | | | | [place] | | +---------+---------+---------+---------+---------+---------+---------+ | MEAN | 88 fL | 80-100 | Normal | | Healths | | | CORPUSC | | | | | tar | | | ULAR | | | | | Physici | | | VOLUME | | | | | ans Hot | | | | | | | | | | | | | | | | [place] | | | | | | | | [place] | | +---------+---------+---------+---------+---------+---------+---------+ | MEAN | 30.2 pg | 26.0-34 | Normal | | Healths | | | CORPUSC | | .0 | | | tar | | | ULAR | | | | | Physici | | | HEMOGLO | | | | | ans Hot | | | BIN | | | | | | | | | | | | | [place] | | | | | | | | [place] | | +---------+---------+---------+---------+---------+---------+---------+ | MEAN | 34.2 | 31.0-37 | Normal | | Healths | | | CORPUSC | g/dL | .0 | | | tar | | | ULAR | | | | | Physici | | | HEMOGLO | | | | | ans Hot | | | BIN | | | | | | | | CONCENT | | | | | [place] | | | RATION | | | | | [place] | | +---------+---------+---------+---------+---------+---------+---------+ | RED | 42.0 % | 39.1-51 | Normal | | Healths | | | CELL | | .8 | | | tar | | | DISTRIB | | | | | Physici | | | UTION | | | | | ans Hot | | | WIDTH | | | | | | | | | | | | | [place] | | | | | | | | [place] | | +---------+---------+---------+---------+---------+---------+---------+ | PLATELE | 294 | 150-450 | Normal | | Healths | | | TS | K/uL | | | | tar | | | | | | | | Physici | | | | | | | | ans Hot | | | | | | | | | | | | | | | | [place] | | | | | | | | [place] | | +---------+---------+---------+---------+---------+---------+---------+ | MEAN | 8.6 fL | 7.4-10. | Normal | | Healths | | | PLATELE | | 4 | | | tar | | | T | | | | | Physici | | | VOLUME | | | | | ans Hot | | | | | | | | | | | | | | | | [place] | | | | | | | | [place] | | +---------+---------+---------+---------+---------+---------+---------+ | NEUTROP | 68.1 % | 42.0-75 | Normal | | Healths | | | HIL, | | .0 | | | tar | | | PERCENT | | | | | Physici | | | AGE | | | | | ans Hot | | | | | | | | | | | | | | | | [place] | | | | | | | | [place] | | +---------+---------+---------+---------+---------+---------+---------+ | LYMPHOC | 25.3 % | 10.0-58 | Normal | | Healths | | | YTE, | | .0 | | | tar | | | PERCENT | | | | | Physici | | | AGE | | | | | ans Hot | | | | | | | | | | | | | | | | [place] | | | | | | | | [place] | | +---------+---------+---------+---------+---------+---------+---------+ | MIXED, | 6.6 % | 0.0-12. | Normal | | Healths | | | PERCENT | | 0 | | | tar | | | AGE | | | | | Physici | | | | | | | | ans Hot | | | | | | | | | | | | | | | | [place] | | | | | | | | [place] | | +---------+---------+---------+---------+---------+---------+---------+ | NEUTROP | 6.4 | 2.0-7.8 | Normal | | Healths | | | HIL, | K/uL | | | | tar | | | ABSOLUT | | | | | Physici | | | E | | | | | ans Hot | | | | | | | | | | | | | | | | [place] | | | | | | | | [place] | | +---------+---------+---------+---------+---------+---------+---------+ | LYMPHOC | 2.4 | 0.6-4.1 | Normal | | Healths | | | YTE, | K/uL | | | | tar | | | ABSOLUT | | | | | Physici | | | E | | | | | ans Hot | | | | | | | | | | | | | | | | [place] | | | | | | | | [place] | | +---------+---------+---------+---------+---------+---------+---------+ | MIXED, | 0.6 | 0.3-0.8 | Normal | | Healths | | | ABSOLUT | K/uL | | | | tar | | | E | | | | | Physici | | | | | | | | ans Hot | | | | | | | | | | | | | | | | [place] | | | | | | | | [place] | | +---------+---------+---------+---------+---------+---------+---------+ | RDW-CV | 12.20 | 11.50-1 | Normal | | Healths | | | | fL | 4.50 | | | tar | | | | | | | | Physici | | | | | | | | ans Hot | | | | | | | | | | | | | | | | [place] | | | | | | | | [place] | | +---------+---------+---------+---------+---------+---------+---------+ + + + + | ID | Date | Data Source | + + + + | [id number] | 11/01/2018 10:03:00 | [facility] | | [id number] | AM COMMERCIAL CONSTRUCTION ESTIMATOR | [place] | + + + + +---------+---------+---------+---------+---------+---------+---------+ | Name | Value | Range | Interpr | Descrip | Data | Support | | | | | etation | tion | Source( | ing | | | | | Code | | s) | Documen | | | | | | | | t(s) | +---------+---------+---------+---------+---------+---------+---------+ | TRIGLYC | 253.00 | <149.00 | High | | Healths | | | ERIDE | mg/dL | | | | tar | | | | | | | | Physici | | | | | | | | ans Hot | | | | | | | | | | | | | | | | [place] | | | | | | | | [place] | | +---------+---------+---------+---------+---------+---------+---------+ + + | Borderline High 150-199; High 200-499; Very High >=500 | + + +---------+-------+------+------+---+---------+---+ | CHOLEST | 209 | <199 | High | | Healths | | | OMAIRA | mg/dL | | | | tar | | | | | | | | Physici | | | | | | | | ans Hot | | | | | | | | | | | | | | | | [place] | | | | | | | | [place] | | +---------+-------+------+------+---+---------+---+ + + | Borderline - 200-239; HHigh - >=240 | + + +---------+---------+---------+------+---+---------+---+ | HDL | 37 | 39-61 | Low | | Healths | | | | mg/dL | | | | tar | | | | | | | | Physici | | | | | | | | ans Hot | | | | | | | | | | | | | | | | [place] | | | | | | | | [facility] | | +---------+---------+---------+------+---+---------+---+ | Cholest | 121.40 | <109.00 | High | | Healths | | | omaira in | mg/dL | | | | tar | | | LDL | | | | | Physici | | | [Mass/v | | | | | ans Hot | | | olume] | | | | | | | | in | | | | | [place] | | | Serum | | | | | [facility] | | | or | | | | | | | | Plasma | | | | | | | +---------+---------+---------+------+---+---------+---+ | CHOL/HD | 5.65 | <4.90 | High | | Healths | | | L RISK | Ratio | | | | tar | | | RATIO | | | | | Physici | | | | | | | | ans Hot | | | | | | | | | | | | | | | | [place] | | | | | | | | [facility] | | +---------+---------+---------+------+---+---------+---+ | LDL/HDL | 3.28 | <2.27 | High | | Healths | | | RISK | Ratio | | | | tar | | | RATIO | | | | | Physici | | | | | | | | ans Hot | | | | | | | | | | | | | | | | [place] | | | | | | | | [place] | | +---------+---------+---------+------+---+---------+---+ + + | Average Risk: 2.35-4.12; Moderate Risk: 4.13-5.56; High Risk >5.57 | + + + + + + | ID | Date | Data Source | + + + + | [id number] | 11/01/2018 10:03:00 | [facility] | | [id number] | AM COMMERCIAL CONSTRUCTION ESTIMATOR | [place] | + + + + +---------+-------+-------+---------+---------+---------+---------+ | Name | Value | Range | Interpr | Descrip | Data | Support | | | | | etation | tion | Source( | ing | | | | | Code | | s) | Documen | | | | | | | | t(s) | +---------+-------+-------+---------+---------+---------+---------+ | PROSTAT | 4.56 | <3.09 | High | | Healths | | | IC | ng/mL | | | | tar | | | SPECIFI | | | | | Physici | | | C | | | | | ans Hot | | | ANTIGEN | | | | | | | | , TOTAL | | | | | [place] | | | | | | | | [place] | | +---------+-------+-------+---------+---------+---------+---------+ + + + + | ID | Date | Data Source | + + + + | [id number] | 11/01/2018 10:03:00 | [facility] | | [id number] | AM COMMERCIAL CONSTRUCTION ESTIMATOR | [place] | + + + + +---------+---------+---------+---------+---------+---------+---------+ | Name | Value | Range | Interpr | Descrip | Data | Support | | | | | etation | tion | Source( | ing | | | | | Code | | s) | Documen | | | | | | | | t(s) | +---------+---------+---------+---------+---------+---------+---------+ | GLUCOSE | 141 | 74-106 | High | | Healths | | | | mg/dL | | | | tar | | | | | | | | Physici | | | | | | | | ans Hot | | | | | | | | | | | | | | | | [place] | | | | | | | | [place] | | +---------+---------+---------+---------+---------+---------+---------+ | BUN | 10 | 7-20 | Normal | | Healths | | | | mg/dL | | | | tar | | | | | | | | Physici | | | | | | | | ans Hot | | | | | | | | | | | | | | | | [place] | | | | | | | | [place] | | +---------+---------+---------+---------+---------+---------+---------+ | CREATIN | 0.72 | 0.50-1. | Normal | | Healths | | | INE | mg/dL | 30 | | | tar | | | | | | | | Physici | | | | | | | | ans Hot | | | | | | | | | | | | | | | | [place] | | | | | | | | [place] | | +---------+---------+---------+---------+---------+---------+---------+ | EGFR | 129.34 | >59.00 | Normal | | Healths | | | | mL/min/ | | | | tar | | | | 1.73m2 | | | | Physici | | | CODY | | | | | ans Hot | | | N | | | | | | | | | | | | | [place] | | | | | | | | [place] | | +---------+---------+---------+---------+---------+---------+---------+ + + | Using the modified MDRD study equations, GFR calculations are not valid | | inpatients less than 18 years of age. | + + +---------+---------+--------+--------+---+---------+---+ | EGFR | 106.71 | >59.00 | Normal | | Healths | | | NON-AFR | mL/min/ | | | | tar | | | ICAN | 1.73m2 | | | | Physici | | | CODY | | | | | ans Hot | | | N | | | | | | | | | | | | | [place] | | | | | | | | [place] | | +---------+---------+--------+--------+---+---------+---+ + + | Using the modified MDRD study equations, GFR calculations are not valid | | inpatients less than 18 years of age. | + + +---------+--------+---------+--------+---+---------+---+ | BUN/CRE | 13.89 | 6.00-22 | Normal | | Healths | | | AT | Ratio | .00 | | | tar | | | RATIO | | | | | Physici | | | | | | | | ans Hot | | | | | | | | | | | | | | | | [place] | | | | | | | | [place] | | +---------+--------+---------+--------+---+---------+---+ | BILIRUB | 0.7 | 0.2-1.3 | Normal | | Healths | | | IN, | mg/dL | | | | tar | | | TOTAL | | | | | Physici | | | | | | | | ans Hot | | | | | | | | | | | | | | | | [place] | | | | | | | | [place] | | +---------+--------+---------+--------+---+---------+---+ | AST | 22 U/L | 14-59 | Normal | | Healths | | | (SGOT) | | | | | tar | | | | | | | | Physici | | | | | | | | ans Hot | | | | | | | | | | | | | | | | [place] | | | | | | | | [place] | | +---------+--------+---------+--------+---+---------+---+ | ALT | 16 U/L | 0-50 | Normal | | Healths | | | (SGPT) | | | | | tar | | | | | | | | Physici | | | | | | | | ans Hot | | | | | | | | | | | | | | | | [place] | | | | | | | | [place] | | +---------+--------+---------+--------+---+---------+---+ | ALKALIN | 98 U/L | 38-126 | Normal | | Healths | | | E | | | | | tar | | | PHOSPHA | | | | | Physici | | | TASE | | | | | ans Hot | | | | | | | | | | | | | | | | [place] | | | | | | | | [place] | | +---------+--------+---------+--------+---+---------+---+ | CALCIUM | 9.5 | 8.4-10. | Normal | | Healths | | | | mg/mL | 2 | | | tar | | | | | | | | Physici | | | | | | | | ans Hot | | | | | | | | | | | | | | | | [place] | | | | | | | | [place] | | +---------+--------+---------+--------+---+---------+---+ | SODIUM | 139 | 137-145 | Normal | | Healths | | | | mmol/L | | | | tar | | | | | | | | Physici | | | | | | | | ans Hot | | | | | | | | | | | | | | | | [place] | | | | | | | | [place] | | +---------+--------+---------+--------+---+---------+---+ | POTASSI | 4.4 | 3.5-5.1 | Normal | | Healths | | | UM | mmol/L | | | | tar | | | | | | | | Physici | | | | | | | | ans Hot | | | | | | | | | | | | | | | | [place] | | | | | | | | [place] | | +---------+--------+---------+--------+---+---------+---+ | CHLORID | 104 | 98-107 | Normal | | Healths | | | E | mmol/L | | | | tar | | | | | | | | Physici | | | | | | | | ans Hot | | | | | | | | | | | | | | | | [place] | | | | | | | | [place] | | +---------+--------+---------+--------+---+---------+---+ | CO2 | 27 | 22-30 | Normal | | Healths | | | | mmol/L | | | | tar | | | | | | | | Physici | | | | | | | | ans Hot | | | | | | | | | | | | | | | | [place] | | | | | | | | [place] | | +---------+--------+---------+--------+---+---------+---+ | ANION | 12 | 7-16 | Normal | | Healths | | | GAP | mmol/L | | | | tar | | | | | | | | Physici | | | | | | | | ans Hot | | | | | | | | | | | | | | | | [place] | | | | | | | | [place] | | +---------+--------+---------+--------+---+---------+---+ | TOTAL | 8.1 | 6.3-8.2 | Normal | | Healths | | | PROTEIN | g/dL | | | | tar | | | | | | | | Physici | | | | | | | | ans Hot | | | | | | | | | | | | | | | | [place] | | | | | | | | [place] | | +---------+--------+---------+--------+---+---------+---+ | ALBUMIN | 4.5 | 3.5-5.0 | Normal | | Healths | | | | g/dL | | | | tar | | | | | | | | Physici | | | | | | | | ans Hot | | | | | | | | | | | | | | | | [place] | | | | | | | | [place] | | +---------+--------+---------+--------+---+---------+---+ | GLOBULI | 3.60 | | | | Healths | | | N | | | | | tar | | | | | | | | Physici | | | | | | | | ans Hot | | | | | | | | | | | | | | | | [place] | | | | | | | | [place] | | +---------+--------+---------+--------+---+---------+---+ | ALBUMIN | 1.3 | | | | Healths | | | /GLOBUL | Ratio | | | | tar | | | IN | | | | | Physici | | | | | | | | ans Hot | | | | | | | | | | | | | | | | [place] | | | | | | | | [place] | | +---------+--------+---------+--------+---+---------+---+ + + + + | ID | Date | Data Source | + + + + | [id number] | 11/01/2018 10:03:00 | [facility] | | [id number] | AM COMMERCIAL CONSTRUCTION ESTIMATOR | [place] | + + + + +---------+---------+---------+---------+---------+---------+---------+ | Name | Value | Range | Interpr | Descrip | Data | Support | | | | | etation | tion | Source( | ing | | | | | Code | | s) | Documen | | | | | | | | t(s) | +---------+---------+---------+---------+---------+---------+---------+ | TRIGLYC | 253.00 | <149.00 | High | | Healths | | | ERIDE | mg/dL | | | | tar | | | | | | | | Physici | | | | | | | | ans Hot | | | | | | | | | | | | | | | | [place] | | | | | | | | [place] | | +---------+---------+---------+---------+---------+---------+---------+ + + | Borderline High 150-199; High 200-499; Very High >=500 | + + +---------+-------+------+------+---+---------+---+ | CHOLEST | 209 | <199 | High | | Healths | | | OMAIRA | mg/dL | | | | tar | | | | | | | | Physici | | | | | | | | ans Hot | | | | | | | | | | | | | | | | [place] | | | | | | | | [place] | | +---------+-------+------+------+---+---------+---+ + + | Borderline - 200-239; HHigh - >=240 | + + +---------+---------+---------+------+---+---------+---+ | HDL | 37 | 39-61 | Low | | Healths | | | | mg/dL | | | | tar | | | | | | | | Physici | | | | | | | | ans Hot | | | | | | | | | | | | | | | | [place] | | | | | | | | [place] | | +---------+---------+---------+------+---+---------+---+ | Cholest | 121.40 | <109.00 | High | | Healths | | | omaira in | mg/dL | | | | tar | | | LDL | | | | | Physici | | | [Mass/v | | | | | ans Hot | | | olume] | | | | | | | | in | | | | | [place] | | | Serum | | | | | [place] | | | or | | | | | | | | Plasma | | | | | | | +---------+---------+---------+------+---+---------+---+ | CHOL/HD | 5.65 | <4.90 | High | | Healths | | | L RISK | Ratio | | | | tar | | | RATIO | | | | | Physici | | | | | | | | ans Hot | | | | | | | | | | | | | | | | [place] | | | | | | | | [place] | | +---------+---------+---------+------+---+---------+---+ | LDL/HDL | 3.28 | <2.27 | High | | Healths | | | RISK | Ratio | | | | tar | | | RATIO | | | | | Physici | | | | | | | | ans Hot | | | | | | | | | | | | | | | | [place] | | | | | | | | [place] | | +---------+---------+---------+------+---+---------+---+ + + | Average Risk: 2.35-4.12; Moderate Risk: 4.13-5.56; High Risk >5.57 | + + + + + + | ID | Date | Data Source | + + + + | [id number] | 11/01/2018 10:03:00 | [facility] | | [id number] | AM COMMERCIAL CONSTRUCTION ESTIMATOR | [place] | + + + + +---------+-------+-------+---------+---------+---------+---------+ | Name | Value | Range | Interpr | Descrip | Data | Support | | | | | etation | tion | Source( | ing | | | | | Code | | s) | Documen | | | | | | | | t(s) | +---------+-------+-------+---------+---------+---------+---------+ | PROSTAT | 4.56 | <3.09 | High | | Healths | | | IC | ng/mL | | | | tar | | | SPECIFI | | | | | Physici | | | C | | | | | ans Hot | | | ANTIGEN | | | | | | | | , TOTAL | | | | | [place] | | | | | | | | [place] | | +---------+-------+-------+---------+---------+---------+---------+ + + + + | ID | Date | Data Source | + + + + | [id number] | 11/01/2018 10:03:00 | [facility] | | [id number] | AM COMMERCIAL CONSTRUCTION ESTIMATOR | [place] | + + + + +---------+---------+---------+---------+---------+---------+---------+ | Name | Value | Range | Interpr | Descrip | Data | Support | | | | | etation | tion | Source( | ing | | | | | Code | | s) | [place] | | | | | | | | t(s) | +---------+---------+---------+---------+---------+---------+---------+ | WHITE | 9.4 | 4.0-11. | Normal | | Healths | | | BLOOD | K/uL | 0 | | | tar | | | CELL | | | | | Physici | | | | | | | | ans Hot | | | | | | | | | | | | | | | | [place] | | | | | | | | [place] | | +---------+---------+---------+---------+---------+---------+---------+ | RED | 5.07 | 4.50-6. | Normal | | Healths | | | BLOOD | M/uL | 00 | | | tar | | | CELL | | | | | Physici | | | | | | | | ans Hot | | | | | | | | | | | | | | | | [place] | | | | | | | | [place] | | +---------+---------+---------+---------+---------+---------+---------+ | HEMOGLO | 15.3 | 13.5-17 | Normal | | Healths | | | BIN | g/dL | .5 | | | tar | | | | | | | | Physici | | | | | | | | ans Hot | | | | | | | | | | | | | | | | [place] | | | | | | | | [place] | | +---------+---------+---------+---------+---------+---------+---------+ | HEMATOC | 45 % | 41-52 | Normal | | Healths | | | RIT | | | | | tar | | | | | | | | Physici | | | | | | | | ans Hot | | | | | | | | | | | | | | | | [place] | | | | | | | | [place] | | +---------+---------+---------+---------+---------+---------+---------+ | MEAN | 88 fL | 80-100 | Normal | | Healths | | | CORPUSC | | | | | tar | | | ULAR | | | | | Physici | | | VOLUME | | | | | ans Hot | | | | | | | | | | | | | | | | [place] | | | | | | | | [place] | | +---------+---------+---------+---------+---------+---------+---------+ | MEAN | 30.2 pg | 26.0-34 | Normal | | Healths | | | CORPUSC | | .0 | | | tar | | | ULAR | | | | | Physici | | | HEMOGLO | | | | | ans Hot | | | BIN | | | | | | | | | | | | | [place] | | | | | | | | [place] | | +---------+---------+---------+---------+---------+---------+---------+ | MEAN | 34.2 | 31.0-37 | Normal | | Healths | | | CORPUSC | g/dL | .0 | | | tar | | | ULAR | | | | | Physici | | | HEMOGLO | | | | | ans Hot | | | BIN | | | | | | | | CONCENT | | | | | [place] | | | RATION | | | | | [place] | | +---------+---------+---------+---------+---------+---------+---------+ | RED | 42.0 % | 39.1-51 | Normal | | Healths | | | CELL | | .8 | | | tar | | | DISTRIB | | | | | Physici | | | UTION | | | | | ans Hot | | | WIDTH | | | | | | | | | | | | | [place] | | | | | | | | [place] | | +---------+---------+---------+---------+---------+---------+---------+ | PLATELE | 294 | 150-450 | Normal | | Healths | | | TS | K/uL | | | | tar | | | | | | | | Physici | | | | | | | | ans Hot | | | | | | | | | | | | | | | | [place] | | | | | | | | [place] | | +---------+---------+---------+---------+---------+---------+---------+ | MEAN | 8.6 fL | 7.4-10. | Normal | | Healths | | | PLATELE | | 4 | | | tar | | | T | | | | | Physici | | | VOLUME | | | | | ans Hot | | | | | | | | | | | | | | | | [place] | | | | | | | | [place] | | +---------+---------+---------+---------+---------+---------+---------+ | NEUTROP | 68.1 % | 42.0-75 | Normal | | Healths | | | HIL, | | .0 | | | tar | | | PERCENT | | | | | Physici | | | AGE | | | | | ans Hot | | | | | | | | | | | | | | | | [place] | | | | | | | | [place] | | +---------+---------+---------+---------+---------+---------+---------+ | LYMPHOC | 25.3 % | 10.0-58 | Normal | | Healths | | | YTE, | | .0 | | | tar | | | PERCENT | | | | | Physici | | | AGE | | | | | ans Hot | | | | | | | | | | | | | | | | [place] | | | | | | | | [place] | | +---------+---------+---------+---------+---------+---------+---------+ | MIXED, | 6.6 % | 0.0-12. | Normal | | Healths | | | PERCENT | | 0 | | | tar | | | AGE | | | | | Physici | | | | | | | | ans Hot | | | | | | | | | | | | | | | | [place] | | | | | | | | [place] | | +---------+---------+---------+---------+---------+---------+---------+ | NEUTROP | 6.4 | 2.0-7.8 | Normal | | Healths | | | HIL, | K/uL | | | | tar | | | ABSOLUT | | | | | Physici | | | E | | | | | ans Hot | | | | | | | | | | | | | | | | [place] | | | | | | | | [place] | | +---------+---------+---------+---------+---------+---------+---------+ | LYMPHOC | 2.4 | 0.6-4.1 | Normal | | Healths | | | YTE, | K/uL | | | | tar | | | ABSOLUT | | | | | Physici | | | E | | | | | ans Hot | | | | | | | | | | | | | | | | [place] | | | | | | | | [place] | | +---------+---------+---------+---------+---------+---------+---------+ | MIXED, | 0.6 | 0.3-0.8 | Normal | | Healths | | | ABSOLUT | K/uL | | | | tar | | | E | | | | | Physici | | | | | | | | ans Hot | | | | | | | | | | | | | | | | [place] | | | | | | | | [place] | | +---------+---------+---------+---------+---------+---------+---------+ | RDW-CV | 12.20 | 11.50-1 | Normal | | Healths | | | | fL | 4.50 | | | tar | | | | | | | | Physici | | | | | | | | ans Hot | | | | | | | | | | | | | | | | [place] | | | | | | | | [place] | | +---------+---------+---------+---------+---------+---------+---------+ + + | Procedure | + + | | + + Vital Signs + + + + | ID | Date | Data Source | + + + + | [id number] | 02/04/2019 10:47:00 | [facility] | | | AM CDT | [place] | + + + + + + +-------+ + + + | Name | Value | Range | Interpret | Descripti | Data | | | | | ation | on | Source(s) | | | | | Code | | | + + +-------+ + + + | Systolic | 161 | | | 161 | [facility] | | blood | mm(hg) | | | mm(hg) | r | | pressure | | | | | Physician | | | | | | | s Hot | | | | | | | [place] | | | | | | | [place] | + + +-------+ + + + | Blood | L arm | | | L arm | [facility] | | Pressure | | | | | r | | Site | | | | | Physician | | | | | | | s Hot | | | | | | | [place] | | | | | | | [place] | + + +-------+ + + + | Diastolic | 99 mm(hg) | | | 99 mm(hg) | [facility] | | blood | | | | | r | | pressure | | | | | Physician | | | | | | | s Hot | | | | | | | [place] | | | | | | | [place] | + + +-------+ + + + | Heart | 95 /min | | | 95 /min | [facility] | | rate | | | | | r | | | | | | | Physician | | | | | | | s Hot | | | | | | | [place] | | | | | | | [place] | + + +-------+ + + + | Deprecate | 97 % | | | 97 % | [facility] | | d Oxygen | | | | | r | | saturatio | | | | | Physician | | n in | | | | | s Hot | | Capillary | | | | | [place] | | blood by | | | | | [place] | | Oximetry | | | | | | + + +-------+ + + + | Body | 36.3 tegan | | | 36.3 tegan | [facility] | | temperatu | | | | | r | | re | | | | | Physician | | | | | | | s Hot | | | | | | | [place] | | | | | | | [place] | + + +-------+ + + + | Weight | | | | | [facility] | | type | | | | | r | | | | | | | Physician | | | | | | | s Hot | | | | | | | [place] | | | | | | | [place] | + + +-------+ + + + | Body | 78.84037 | | | 78.60108 | [facility] | | weight | kg | | | kg | r | | Measured | | | | | Physician | | | | | | | s Hot | | | | | | | [place] | | | | | | | [place] | + + +-------+ + + + | Body mass | 26.5 | | | 26.5 | [facility] | | index | kg/m2 | | | kg/m2 | r | | (BMI) | | | | | Physician | | [Ratio] | | | | | s Hot | | | | | | | [place] | | | | | | | [place] | + + +-------+ + + + | Temperatu | ear | | | ear | [facility] | | re Type | | | | | r | | | | | | | Physician | | | | | | | s Hot | | | | | | | [place] | | | | | | | [place] | + + +-------+ + + + | O2 | Room Air | | | Room Air | [facility] | | Saturatio | at Rest | | | at Rest | r | | n Air | | | | | Physician | | Type | | | | | s Hot | | | | | | | [place] | | | | | | | [place] | + + +-------+ + + + | Blood | sitting | | | sitting | [facility] | | Pressure | | | | | r | | Type | | | | | Physician | | | | | | | s Hot | | | | | | | [place] | | | | | | | [place] | + + +-------+ + + + | Height | | | | | [facility] | | type | | | | | r | | | | | | | Physician | | | | | | | s Hot | | | | | | | [place] | | | | | | | [place] | + + +-------+ + + + | Body | 172.72 cm | | | 172.72 cm | [facility] | | height | | | | | r | | | | | | | Physician | | | | | | | s Hot | | | | | | | [place] | | | | | | | [place] | + + +-------+ + + + + + + + | ID | Date | Data Source | + + + + | [id number] | 09/18/2018 09:33:00 | [facility] | | | PM COMMERCIAL CONSTRUCTION ESTIMATOR | [place] | + + + + +------+-------+-------+ + + + | Name | Value | Range | Interpret | Descripti | Data | | | | | ation | on | Source(s) | | | | | Code | | | +------+-------+-------+ + + + | LAB | 1 | | | 1 | [facility] | | | | | | | r | | | | | | | Physician | | | | | | | s Hot | | | | | | | [place] | | | | | | | [place] | +------+-------+-------+ + + + + + + + | ID | Date | Data Source | + + + + | [id number] | 08/27/2016 06:01:00 | [facility] | | | PM COMMERCIAL CONSTRUCTION ESTIMATOR | Family Medicine NOT | | | | ACTIVE | + + + + + + +-------+ + + + | Name | Value | Range | Interpret | Descripti | Data | | | | | ation | on | Source(s) | | | | | Code | | | + + +-------+ + + + | Oxygen | 98 % | | | 98 % | [facility] | | Saturatio | | | | | r | | n | | | | | [place] | | | | | | | Family | | | | | | | Medicine | | | | | | | NOT | | | | | | | ACTIVE | + + +-------+ + + + | Creatinin | 0.91 | | | 0.91 | [facility] | | e | mg/dL | | | mg/dL | r | | | | | | | [place] | | | | | | | Family | | | | | | | Medicine | | | | | | | NOT | | | | | | | ACTIVE | + + +-------+ + + + | Respirati | 12 bpm | | | 12 bpm | [facility] | | on | | | | | r | | | | | | | [place] | | | | | | | Family | | | | | | | Medicine | | | | | | | NOT | | | | | | | ACTIVE | + + +-------+ + + + | Pulse | 81 bpm | | | 81 bpm | [facility] | | | | | | | r | | | | | | | [place] | | | | | | | Family | | | | | | | Medicine | | | | | | | NOT | | | | | | | ACTIVE | + + +-------+ + + + | Blood | 172 mm Hg | | | 172 mm Hg | [facility] | | Pressure | | | | | r | | - | | | | | [place] | | Systolic | | | | | Family | | | | | | | Medicine | | | | | | | NOT | | | | | | | ACTIVE | + + +-------+ + + + | Blood | 104 mm Hg | | | 104 mm Hg | [facility] | | Pressure | | | | | r | | - | | | | | [place] | | Diastolic | | | | | Family | | | | | | | Medicine | | | | | | | NOT | | | | | | | ACTIVE | + + +-------+ + + + | Temperatu | 97.8 F | | | 97.8 F | [facility] | | re | | | | | r | | | | | | | [place] | | | | | | | Family | | | | | | | Medicine | | | | | | | NOT | | | | | | | ACTIVE | + + +-------+ + + + | Weight | 178.2 lbs | | | 178.2 lbs | [facility] | | | | | | | r | | | | | | | [place] | | | | | | | Family | | | | | | | Medicine | | | | | | | NOT | | | | | | | ACTIVE | + + +-------+ + + + | Height | 68 inches | | | 68 inches | [facility] | | | | | | | r | | | | | | | [place] | | | | | | | Family | | | | | | | Medicine | | | | | | | NOT | | | | | | | ACTIVE | + + +-------+ + + + | Health | | | | | [facility] | | Summary - | | | | | r | | Rich | | | | | [place] | | Text | | | | | Family | | | | | | | Medicine | | | | | | | NOT | | | | | | | ACTIVE | + + +-------+ + + + | Visit | | | | | [facility] | | Note - | | | | | r | | Rich Text | | | | | [place] | | | | | | | Family | | | | | | | Medicine | | | | | | | NOT | | | | | | | ACTIVE | + + +-------+ + + +
[2019-09-10] MEDS ORDERED: FLOMAX0.4 MG PO (12:07)
[2019-09-10] MEDS ORDERED: ELIQUIS5 MG PO (12:08)
[2019-09-10] MEDS ORDERED: GLUCOPHAGE500 MG PO (12:09)
[2019-09-10] MEDS ORDERED: PROTONIX40 MG PO (12:09)
[2019-09-10 13:01] VITALS: BP 154/82
--- NOTE | 2019-09-10 14:00 | NUR ---
SPOKE WITH PT REGARDING REFERRAL TO UROLOGY. HE IS NOT ESTABLISHED WITH UROLOGIST, AND WOULD LIKE TO TALK WITH DR HERNANDEZ REGARDING AND WILL SCHEDULE THEREAFTER.
--- NOTE | 2019-09-10 14:24 | MORECARE ---
CASE MANAGEMENT DISCHARGE SUMMARY PATIENT: KAN MOSELEY UNIT: [id number] ADM DATE: 09/07/19 AGE: 74 : 43 SEX: M ROOM/BED: D.9297 AUTHOR: GARRICK CARTAGENA PHYSICIAN: REFERRING PHYSICIAN: NII CÁRDENAS MD DATE OF SERVICE: 09/10/19 Discharge Plan Patient Name: KAN MOSELEY Facility: [facility]:[place] : 1945 Planned Disposition: Home Anticipated Discharge Date: 09/10/19 Discharge Date: Expected LOS: 3 Initial Reviewer: [email or web address] Initial Review Date: 09/07/2019 Generated: 09/10/19 3:24 pm Comments DCP- Discharge Planning Updated by [email or web address]: Hector Rubio on 09/10/19 1:[address] Patient Name: KAN MOSELEY Encounter No: [id number] : 1945 Primary Insurance: MEDICARE A & B Anticipated DC Date: 09-10-2019 Planned Disposition: Home External Planned Provider: : DCP follow-up note: CM MET WITH PT IN ROOM TO DISCUSS DISCHARGE NEEDS AND PLANNING. CM DISCUSSED AVAILABILITY OF HOME HEALTH, REHAB SERVICES AND MEDICAL EQUIPMENT. PT DENIES DISCHARGE NEEDS. SPOUSE TO TRANSPORT HOME AT DISCHARGE. IMPORTANT MESSAGE FROM MEDICARE PROVIDED AND EXPLAINED. OUTSIDE SALESMAN NURSE NOTIFIED. LEONIDAS Mckinley DCP- Discharge Planning Updated by [email or web address]: Donya Willoughby on 09/07/19 11:[address] DC PLAN: Return home with independently. ANTICIPATED DC NEEDS: Denied dc needs. CM met with patient to complete initial dc planning assessment. CM educated patient on the CM role and verbal consent given by patient to complete assessment. CM verified patient's address, phone number, and emergency contact phone numbers. Patient lives at home with his and reports he is independent in his care at home. At discharge patient plans to return home independently and feels this is a safe discharge. CM discussed availability of home health, rehab services, and medical equipment. Patient denied known discharge needs at this time. Transportation provider at discharge will be his . CM will continue to follow and will assist as needed with dc plans/needs. Donya Willoughby RN, [facility] DCPIA - Discharge Planning Initial Assessment Updated by [email or web address]: Donya Willoughby on 09/07/19 12:25 pm * Is the patient Alert and Oriented? Yes * How many steps to enter\exit or inside your home? * PCP Dr. Santos * Pharmacy [facility] in [place] * Preadmission Environment Home with Family * ADLs Independent * Equipment Rolling Walker Wheelchair * Other Equipment Does not use equipment * List name and contact numbers for known caregivers / representatives who currently or will assist patient after discharge: Beba Moseley - - [phone] * Verbal permission to speak to the caregivers and representatives has been obtained from the patient. Yes * Community resources currently utilized None * Additional services required to return to the preadmission environment? No * Can the patient safely return to the preadmission environment? Yes * Has this patient been hospitalized within the prior 30 days at any hospital? No Coverage Notice Reviewer: [email or web address] Kelley Rubio Notice Issued Date-Time: 09/10/2019 13:00 Notice Type: IM Discharge Notice Notice Delivered To: Patient Relationship to Patient: Instant Powder Supervisor Name: Delivery Method: HAND - Hand Delivered Galina Days: Prior Verbal Notification: Recipient Understood Notice: Yes Recipient Signature: Yes Med Rec Note Co-signed by Attending: Coverage Notice Comment: Last DP export: 09/07/19 11:35 Patient Name: KAN MOSELEY Page [id number] at 1424 All edits/amendments must be made on the electronic document DICTATION DATE: 09/10/191423 COSTING ANALYST: WAYLON 09/10/191423 RPT#: [id number] DC DATE: STATUS: ADM IN [facility] [address] [place] [address] END OF REPORT
[2019-09-10 15:30] VITALS: Ht 172.7 cm; Wt 78.5 kg
--- NOTE | 2019-09-10 15:32 | NUR ---
PATIENT HAS BEEN DISCHARGED. ALL DISCHARGE TEAHCING HAS BEEN DONE AND PAPERS SIGNED. ALL PATIENT BELONGINGS HAVE BEEN REMOVED FROM THE ROOM AND GONE HOME WITH THE PATINET. IV REMOVED WITH CATHETER INTACT. PATIENT TOLERATED.
[2019-09-14 17:08] LABS: FACTOR II DNA ANALYSIS Negative (())
== END 2019-09-10 15:33 | disposition home or self-care (01) | DRG 300 ==
LOC: D.ER 11:03 → D.M2 11:31
PROVIDERS: Family Medicine; Internal Medicine Hematology & Oncology; ADMIT Internal Medicine Nephrology; ATTEND Internal Medicine Nephrology
DX: I82.411 Acute embolism and thrombosis of right femoral vein (principal); N17.9 Acute kidney failure, unspecified; E87.1 Hypo-osmolality and hyponatremia; F17.213 Nicotine dependence, cigarettes, with withdrawal; I82.441 Acute embolism and thrombosis of right tibial vein; R23.3 Spontaneous ecchymoses; K21.9 Gastro-esophageal reflux disease without esophagitis; I10 Essential (primary) hypertension; N40.0 Benign prostatic hyperplasia without lower urinary tract symptoms; E11.69 Type 2 diabetes mellitus with other specified complication; E53.8 Deficiency of other specified B group vitamins

== ENCOUNTER 2019-11-13 05:16 | Day surgery (SDC) | payer MEDICARE, BC ==
[~2019-11-13] VITALS: Ht 172.7 cm; Wt 77.6 kg
[2019-11-13 05:38] LABS: HEMATOCRIT 43.9 % (42.0-54.0); HEMOGLOBIN 14.9 g/dL (13.5-17.5); MCH 29.8 pg (26.0-34.0); MCHC 33.9 g/dL (31.0-37.0); MCV 87.8 fL (80.0-100.0); MEAN PLATELET VOLUME 9.4 fL (7.4-10.4); RDW 12.9 % (11.5-14.5); WBC 7.2 10x3/uL (4.8-10.8)
[2019-11-13 05:55] LABS: ANION GAP 7.2 mmol/L (8-16); CALCIUM 9.3 mg/dL (8.5-10.1); CARBON DIOXIDE 30.1 mmol/L (21.0-32.0); CREATININE - SERUM 1.3 mg/dL (0.6-1.3); POTASSIUM - SERUM 4.3 mmol/L (3.5-5.1)
[2019-11-13 06:45] VITALS: Ht 172.7 cm; Wt 77.6 kg
--- NOTE | 2019-11-13 09:12 | NUR ---
[address] FRASER. PROCEDURE FINDINGS DISCUSSED WITH PT & . Lemuel HARRIS R.N.
--- NOTE | 2019-11-13 10:58 | OP ---
PATIENT NAME: KAN MOSELEY MEDICAL RECORD: [id number] :[birth year] LOCATION:D.OPS ADMISSION DATE: SURGEON: SHOLA FRASER MD DATE OF OPERATION: 11/13/2019 SURGEON: Shola Fraser MD ANESTHESIA: TIVA by [employer] CRNA DIAGNOSES: Elevated PSA of 3.77 on 09/17/2019, bladder outlet obstruction. PROCEDURE: Cystoscopy, transrectal ultrasound (TRUS) and prostate biopsy. FINDINGS: Bilateral lateral lobe obstruction with single ureteral orifices. Heavily trabeculated bladder with cellules and diverticula, cystitis cystica. No bladder tumors. SPECIMENS: Prostate biopsy cores. BLOOD LOSS: Minimal. CLINICAL HISTORY: This is a 74-year-old male, who was referred with an elevated PSA. This was discovered when he was admitted to hospital with a right leg DVT without pulmonary embolism. He is currently on Eliquis. He also has some voiding obstructive symptoms for which he is on tamsulosin. He is not allergic to any medications. He comes today to have a prostate biopsy and cystoscopy. DESCRIPTION OF PROCEDURE: He was given Levaquin software configuration analyst to the OR. He was then placed into lithotomy position. A 17-Kenyan cystoscope was used for visualization. The lateral lobe of the prostate was quite obstructive. He has a very heavily trabeculated bladder as a result. The bladder was then emptied through the scope sheath and the scope was removed. We then introduced the transrectal ultrasound probe. Prostate size measurements were obtained. A size of 70 grams was calculated. He has intraprostatic stones, which caused shadowing. Sextant biopsies were obtained with at least 3 cores from each sextant. Once all the specimens were obtained and the procedure was terminated, I will see the patient in followup at the end of this week to review the pathology results with him. TRANSINT:[id number] Voice Confirmation ID: [id number] DOCUMENT ID: [id number] SHOLA FRASER MD at 1058 CC: [id number] DICTATION DATE: 11/13/19 09 CUSTOMER SERVICES MANAGER: 11/13/19 1025 REG [facility] [address] [place] [address]
--- NOTE | 2019-11-13 13:58 | NUR ---
1135 DRESSED, AWAKE & ALERT. URINATED A SECOND TIME OST PROCEDURE. CALL PLACED TO DR. LEVY'S OFFICE. QUESTION OF WHEN TO RESUME ELIQUIS. DR. LEVY STATED TOMORROW (11/14/19). PT GIVEN DISHCARGE INFORMATION INCLUDING: MED REC, RTC APPT., [facility] D/C INSTRUCTIONS, & POST CYSTOCOPY & PROSTATE BIOPSY D/C INSTRUCTIONS. PT INFORMED MAY CALL OFFICE TO RESCHEDULE APPT. TO PRIVATE CAR PER WHEELCHAIR BY VOLUNTEER. HOME WITH , DONYA MOSELEY. MARY Duarte
== END 2019-11-13 11:35 | disposition home or self-care (01) ==
LOC: D.OPS 05:16 → D.PAN 08:30 → D.US 08:30 → D.OPS 11:35
PROVIDERS: Anesthesiology; ATTEND Urology
DX: R97.20 Elevated prostate specific antigen [PSA] (principal); N32.0 Bladder-neck obstruction

== ENCOUNTER → 2020-05-13 11:28 | Outpatient (CLI) | payer MEDICARE, BC ==
[2019-11-13 06:45] VITALS: BMI 26.0
[~2020-05-13 11:28] MED LIST: ELIQUIS5 MG PO; FLOMAX0.4 MG PO; GLUCOPHAGE500 MG PO; LISINOPRIL10 MG PO; LOVENOX80 MG/0.8 SC; PRAVASTATIN SOD10 MG PO; PROTONIX40 MG PO; SMZ-TMP DS TABL1 TAB PO
== END | disposition home or self-care (01) ==
LOC: D.US 11:28
PROVIDERS: ATTEND Internal Medicine Hematology & Oncology
DX: I82.491 Acute embolism and thrombosis of other specified deep vein of right lower extremity (principal)